=== PATIENT | male | born 1955 | race African-American/Black ===

== ENCOUNTER 2017-02-01 13:58 | Inpatient (IN) | payer OTHER ==
[2017-02-01 14:21] VITALS: BMI 16.2
--- NOTE | 2017-02-01 15:45 | HP ---
CIWA Score - CIWA Score Nausea/Vomitin-No Nausea/No Vomiting Muscle Tremors: 4-Moderate,w/Arms Extend Anxiety: 4-Mod. Anxious/Guarded Agitation: 4-Moderately Restless Paroxysmal Sweats: 1-Minimal Palms Moist Orientation: 0-Oriented Tacttile Disturbances: 3-Moderate Itch/Numb/Burn Auditory Disturbances: 0-None Visual Disturbances: 0-None Headache: 0-None Present CIWA-Ar Total Score: 16 Admission ROS BHS - HPI Chief Complaint: DETOX TX FOR ALCOHOL DEPENDENCE Allergies/Adverse Reactions: Allergies Allergy/AdvReac Type Severity Reaction Status Date / Time No Known Allergies Allergy Verified 02/01/17 15:15 History of Present Illness: 61 Y/O AA/MALE WITH A HX OF ALCOHOL,COCAINE AND MARIJUANA DEPENDENCE SEEKING DETOX TX Exam Limitations: No Limitations - Ebola screening Have you traveled outside of the country in the last 21 days: No Have you had contact with anyone from an Ebola affected area: No Have you been sick,other than usual withdrawal symptoms: No Do you have a fever: No - Review of Systems Constitutional: Chills, Loss of Appetite, Night Sweats, Changes in sleep, Unintentional Wgt. Loss EENT: reports: Blurred Vision, Tearing, Nose Congestion, Dental Problems (IN POOR REPAIR) Respiratory: reports: Shortness of Breath (HX EMPHYSEMA), Wheezing Cardiac: reports: Lightheadedness GI: reports: Constipated, Diarrhea, Nausea, Poor Appetite, Vomiting, Indigestion , Abdominal cramping : reports: No Symptoms Reported Musculoskeletal: reports: Back Pain (LBP), Joint Pain, Muscle Pain Integumentary: reports: No Symptoms Reported Neuro: reports: Headache, Tremors, Unsteady Gait, Dizziness Endocrine: reports: No Symptoms Reported Hematology: reports: Anemia Psychiatric: reports: Orientated x3, Anxious Other Systems: Reviewed and Negative Patient History - Patient Medical History Hx Anemia: No Hx Asthma: No Hx Chronic Obstructive Pulmonary Disease (COPD): Yes (EMPHYSEMA) Hx Cancer: No Hx Cardiac Disorders: No Hx Hypertension: No Hx Hypercholesterolemia: No Hx Pacemaker: No HX Cerebrovascular Accident: No Hx Seizures: No Hx Dementia: No Hx Diabetes: No Hx Gastrointestinal Disorders: Yes (HX DYSPEPSIA) Hx Liver Disease: No Hx Genitourinary Disorders: No Hx Sexually Transmitted Disorders: Yes (SYPHILIS HX) Hx Renal Disease (ESRD): No Hx Thyroid Disease: No Hx Human Immunodeficiency Virus (HIV): No (NEGATIVE HX) Hx Hepatitis C: No Hx Depression: No (DENIES ) Hx Suicide Attempt: No (DENIES) Hx Bipolar Disorder: No Hx Schizophrenia: No Other Medical History: HX OF INSOMNIA WITH NO TREATMENT - Patient Surgical History Past Surgical History: Yes Hx Neurologic Surgery: No Hx Cataract Extraction: No Hx Cardiac Surgery: No Hx Lung Surgery: No Hx Breast Surgery: No Hx Breast Biopsy: No Hx Abdominal Surgery: Yes (stomach ulcer in 11/2013) Hx Appendectomy: No Hx Cholecystectomy: No Hx Genitourinary Surgery: No Hx Orthopedic Surgery: No Anesthesia Reaction: No - PPD History Previous Implant?: Yes Documented Results: Positive w/o proof Implanted On Prior [facility] Admission?: No Results: CXR TBD PPD to be Administered?: No - Reproductive History Patient is a Female of Child Bearing Age (11 -55 yrs old): No (MALE) - Smoking Cessation Smoking history: Current every day smoker Have you smoked in the past 12 months: Yes Aproximately how many cigarettes per day: 20 Hx Chewing Tobacco Use: No Initiated information on smoking cessation: Yes 'Breaking Loose' booklet given: 02/01/17 - Substance & Tx. History Hx Alcohol Use: Yes (CRACK/MARIJUANA) Hx Substance Use: Yes (COCAINE DEPENDENCE) - Substances Abused Alcohol Route: Oral Frequency: Daily Amount used: 6 32 OZ BEERS Age of first use: 17 Date of Last Use: 02/01/17 Crack Route: Smoking Frequency: Daily Amount used: $100-150 Age of first use: 36 Date of Last Use: 02/01/17 Marijuana/Hashish Route: Smoking Frequency: Daily Amount used: 1 BAG Age of first use: 19 Date of Last Use: 01/31/17 Family Disease History - Family Disease History Family Disease History: Diabetes: Father, Heart Disease: Mother (HTN) Admission Physical Exam BHS - Vital Signs Vital Signs: Vital Signs - 24 hr 02/01/17 14:18 Temperature 95.4 F L Pulse Rate 98 H Respiratory 20 Rate Blood Pressure 139/95 - Physical General Appearance: Yes: Moderate Distress, Thin, Anxious HEENTM: Yes: EOMI, Normocephalic, LUISANA, Pharynx Normal, Nasal Congestion Respiratory: Yes: Chest Non-Tender, Lungs Clear, Normal Breath Sounds, No Respiratory Distress Neck: Yes: No masses,lesions,Nodules, Supple, Trachea in good position Breast: Yes: Breast Exam Deferred Cardiology: Yes: Regular Rhythm, Regular Rate, S1, S2 Abdominal: Yes: Normal Bowel Sounds, Non Tender, Flat, Soft Genitourinary: Yes: Other (N/C) Back: Yes: Within Normal Limits Musculoskeletal: Yes: full range of Motion, Gait Steady Extremities: Yes: Normal Range of Motion, Non-Tender Neurological: Yes: paradichlorobenzene tender II-XII NML intact, Fully Oriented, Alert Integumentary: Yes: Dry, Warm Lymphatic: Yes: Within Normal Limits - Diagnostic (1) Weight loss Current Visit: Yes Status: Chronic (2) Emphysema/COPD Current Visit: Yes Status: Chronic (3) Nicotine dependence Current Visit: Yes Status: Acute Qualifiers: Nicotine product type: cigarettes Substance use status: uncomplicated Qualified Code(s): F17.210 - Nicotine dependence, cigarettes, uncomplicated (4) Alcohol dependence with uncomplicated withdrawal Current Visit: Yes Status: Acute (5) Cocaine dependence, uncomplicated Current Visit: Yes Status: Acute (6) Cannabis dependence, uncomplicated Current Visit: Yes Status: Acute Cleared for Admission [facility] - Detox or Rehab [facility] Level of Care: Medically Managed Detox Regimen/Protocol: Librium [facility] Breath Alcohol Content Breath Alcohol Content: 0 Urine Drug Screen - Results Drug Screen Negative: No Urine Drug Screen Results: THC-Marijuana, MORENA-Cocaine
[2017-02-01] MEDS ORDERED: P-EPHED 60MG/TRIPROLIDI 2.5MG TABLET PO PRN (15:54)
[2017-02-01] MEDS ORDERED: hydrOXYzine PAMOATE 25 MG CAPSULE (FP) PO PRN (15:54)
[2017-02-01] MEDS ORDERED: MAG HYDROX/AL HYDROX/SIMETH 30 ML UNIT-DOSE CUP PO PRN (15:54)
[2017-02-01] MEDS ORDERED: IBUPROFEN 400 MG TABLET (FP) PO PRN (15:54)
[2017-02-01] MEDS ORDERED: MAGNESIUM CITRATE 300 ML BOTTLE PO PRN (15:54)
[2017-02-01] MEDS ORDERED: MENTHOL/PHENOL 1 EACH UD MM PRN (15:54)
[2017-02-01] MEDS ORDERED: LOPERAMIDE HCL 2 MG CAPSULE PO PRN (15:54)
[2017-02-01] MEDS ORDERED: NICOTINE POLACRILEX 4 MG GUM BUC PRN (15:54)
[2017-02-01] MEDS ORDERED: guaiFENesin/D-METHORPHAN HB 10 ML UNIT-DOSE CUPS PO PRN (15:54)
[2017-02-01] MEDS ORDERED: chlordiazePOXIDE HCL 25 MG CAPSULE PO PRN (15:54)
[2017-02-01] MEDS ORDERED: ACETAMINOPHEN 325 MG TABLET (FP) PO PRN (15:54)
[2017-02-01] MEDS ORDERED: MAGNESIUM HYDROX 2400MG/30ML ORAL SUSPENSION 30 ML CUP PO PRN (15:54)
[2017-02-01] MEDS ORDERED: chlordiazePOXIDE HCL 25 MG CAPSULE PO ONE (18:15)
[2017-02-01] MEDS: NICOTINE 21 MG/24 HOURS TOPICAL PATCH TD SCH (18:19)
[2017-02-01 20:51] LABS: URINE APPEARANCE CLEAR; URINE BILIRUBIN NEGATIVE (NEGATIVE); URINE COLOR LTYELLOW; URINE GLUCOSE (UA) NEGATIVE (NEGATIVE); URINE KETONE NEGATIVE (NEGATIVE); URINE LEUK ESTERASE NEGATIVE (NEGATIVE); URINE NITRITE NEGATIVE (NEGATIVE); URINE PROTEIN NEGATIVE (NEGATIVE); URINE UROBILINOGEN NEGATIVE E.U./dl (0.2-1.0)
[2017-02-01 21:00] LABS: URINE BLOOD 1+ (NEGATIVE)
[2017-02-01 21:05] LABS: URINE MUCUS RARE; URINE RBC <1 /hpf (0-3); URINE WBC <1 /hpf (3-5)
[2017-02-01] MEDS: chlordiazePOXIDE HCL 25 MG CAPSULE PO SCH (22:12)
[2017-02-01] MEDS: BUDESONIDE/FORMETEROL FUMARATE 80/4.5 mcg INHALER IH SCH (22:12)
[2017-02-01] MEDS: THIAMINE HCL 100 MG TABLET (FP) PO SCH (22:12)
[2017-02-01] MEDS: diphenhydrAMINE HCL 50 MG CAPSULE PO PRN (22:13)
[2017-02-02] MEDS: chlordiazePOXIDE HCL 25 MG CAPSULE PO SCH ×4 (05:50→22:11)
[2017-02-02 10:00] LABS: MCH 28.7 pg (25.7-33.7); MCHC 32.2 g/dl (32.0-35.9); MEAN CELL VOLUME 89.1 fl (80-96); MEAN PLT VOLUME 9.2 fl (7.5-11.1); PLATELET COUNT 131 K/MM3 (134-434); RDW 13.5 % (11.9-15.9); WHITE BLOOD COUNT 3.9 K/mm3 (4.0-10.0)
[2017-02-02] MEDS: PRENATAL VITAMINS W/ FOLIC ACID TABLET (FP) PO SCH (10:18)
[2017-02-02] MEDS: BUDESONIDE/FORMETEROL FUMARATE 80/4.5 mcg INHALER IH SCH ×2 (10:18→22:11)
[2017-02-02] MEDS: NICOTINE 21 MG/24 HOURS TOPICAL PATCH TD SCH (10:19)
--- NOTE | 2017-02-02 10:59 | PN ---
[facility] CIWA - CIWA Score Nausea/Vomitin-No Nausea/No Vomiting Muscle Tremors: 4-Moderate,w/Arms Extend Anxiety: 4-Mod. Anxious/Guarded Agitation: 4-Moderately Restless Paroxysmal Sweats: 1-Minimal Palms Moist Orientation: 0-Oriented Tacttile Disturbances: 3-Moderate Itch/Numb/Burn Auditory Disturbances: 0-None Visual Disturbances: 0-None Headache: 0-None Present CIWA-Ar Total Score: 16 BHS Progress Note (SOAP) Subjective: ANXIETY,TREMORS,SWEATS. Objective: 02/02/17 10:58 Vital Signs Temperature 96.5 F L 02/02/17 09:28 Pulse Rate 78 02/02/17 09:28 Respiratory Rate 19 02/02/17 09:28 Blood Pressure 135/93 02/02/17 09:28 O2 Sat by Pulse Oximetry (%) Laboratory Last Values WBC 3.9 K/mm3 (4.0-10.0) L 02/02/17 07:00 RBC 4.92 M/mm3 (4.00-5.60) 02/02/17 07:00 Hgb 14.1 GM/dL (11.7-16.9) 02/02/17 07:00 Hct 43.8 % (35.4-49) 02/02/17 07:00 MCV 89.1 fl (80-96) 02/02/17 07:00 MCHC 32.2 g/dl (32.0-35.9) 02/02/17 07:00 RDW 13.5 % (11.9-15.9) 02/02/17 07:00 Plt Count 131 K/MM3 (134-434) L D 02/02/17 07:00 MPV 9.2 fl (7.5-11.1) 02/02/17 07:00 Urine Color Ltyellow 02/01/17 19:30 Urine Appearance Clear 02/01/17 19:30 Urine pH 5.0 (5.0-8.0) 02/01/17 19:30 Ur Specific [place] 1.008 (1.001-1.035) 02/01/17 19:30 Urine Protein Negative (NEGATIVE) 02/01/17 19:30 Urine Glucose (UA) Negative (NEGATIVE) 02/01/17 19:30 Urine Ketones Negative (NEGATIVE) 02/01/17 19:30 Urine Blood 1+ (NEGATIVE) H 02/01/17 19:30 Urine Nitrite Negative (NEGATIVE) 02/01/17 19:30 Urine Bilirubin Negative (NEGATIVE) 02/01/17 19:30 Urine Urobilinogen Negative E.U./dl (0.2-1.0) 02/01/17 19:30 Ur Leukocyte Esterase Negative (NEGATIVE) 02/01/17 19:30 Urine RBC <1 /hpf (0-3) 02/01/17 19:30 Urine WBC <1 /hpf (3-5) 02/01/17 19:30 Ur Epithelial Cells Rare /hpf (FEW) 02/01/17 19:30 Urine Mucus Rare 02/01/17 19:30 Assessment: 02/02/17 10:58 WITHDRAWAL SX Plan: CONTINUE DETOX
[2017-02-02 11:16] LABS: ALBUMIN 3.4 g/dl (3.4-5.0); ALK PHOS 66 U/L (45-117); ANION GAP 8 (8-16); BILIRUBIN,TOTAL 0.4 mg/dL (0.2-1.0); CALCIUM 8.9 mg/dL (8.5-10.1); CO2 29 mmol/L (21-32); CREATININE 0.9 mg/dL (0.7-1.3); GLUCOSE,RANDOM 106 mg/dL (74-106); SGOT/AST 17 U/L (15-37); SGPT/ALT 17 U/L (12-78); TOT PROT 6.4 g/dl (6.4-8.2)
--- NOTE | 2017-02-02 17:18 | EKG ---
Test Reason : Blood Pressure : / mmHG Vent. Rate : 085 BPM Atrial Rate : 085 BPM P-R Int : 130 ms QRS Dur : 078 ms QT Int : 410 ms P-R-T Axes : 087 082 063 degrees QTc Int : 487 ms NORMAL SINUS RHYTHM BIATRIAL ENLARGEMENT PULMONARY DISEASE PATTERN PROLONGED QT ABNORMAL ECG NO PREVIOUS ECGS AVAILABLE Confirmed by YESSICA WAHL MD ([id number]) on 02/02/2017 5:18:13 PM Referred By: Confirmed By:YESSICA WAHL MD
[2017-02-02] MEDS: THIAMINE HCL 100 MG TABLET (FP) PO SCH (22:11)
[2017-02-02] MEDS: diphenhydrAMINE HCL 50 MG CAPSULE PO PRN (22:11)
[2017-02-03] MEDS: chlordiazePOXIDE HCL 25 MG CAPSULE PO SCH ×3 (05:51→17:23)
[2017-02-03] MEDS: NICOTINE 21 MG/24 HOURS TOPICAL PATCH TD SCH (10:17)
[2017-02-03] MEDS: PRENATAL VITAMINS W/ FOLIC ACID TABLET (FP) PO SCH (10:17)
[2017-02-03] MEDS: BUDESONIDE/FORMETEROL FUMARATE 80/4.5 mcg INHALER IH SCH ×2 (10:17→22:17)
--- NOTE | 2017-02-03 11:03 | PN ---
S CIWA - CIWA Score Nausea/Vomitin-No Nausea/No Vomiting Muscle Tremors: 3 Anxiety: 3 Agitation: 4-Moderately Restless Paroxysmal Sweats: 3 Orientation: 0-Oriented Tacttile Disturbances: 0-None Auditory Disturbances: 0-None Visual Disturbances: 0-None Headache: 0-None Present CIWA-Ar Total Score: 13 BHS Progress Note (SOAP) Subjective: Anxiety,tremors,sweating,interrupted sleep,restless Objective: 02/03/17 11:02 Vital Signs - 8 hr 02/03/17 02/03/17 02/03/17 03:30 06:39 10:52 Temperature 96.3 F L 97.5 F L Pulse Rate 91 H 85 Respiratory 16 18 18 Rate Blood Pressure 130/91 124/87 Laboratory Tests 02/01/17 02/02/17 02/02/17 19:30 07:00 07:00 WBC 3.9 L RBC 4.92 Hgb 14.1 Hct 43.8 MCV 89.1 MCHC 32.2 RDW 13.5 Plt Count 131 L D MPV 9.2 Sodium 143 Potassium 3.8 Chloride 106 Carbon Dioxide 29 Anion Gap 8 BUN 13 Creatinine 0.9 D Creat Clearance w eGFR > 60 Random Glucose 106 Calcium 8.9 Total Bilirubin 0.4 AST 17 ALT 17 D Alkaline Phosphatase 66 Total Protein 6.4 Albumin 3.4 Urine Color Ltyellow Urine Appearance Clear Urine pH 5.0 Ur Specific [place] 1.008 Urine Protein Negative Urine Glucose (UA) Negative Urine Ketones Negative Urine Blood 1+ H Urine Nitrite Negative Urine Bilirubin Negative Urine Urobilinogen Negative Ur Leukocyte Esterase Negative Urine RBC <1 Urine WBC <1 Ur Epithelial Cells Rare Urine Mucus Rare RPR Titer 02/02/17 07:00 WBC RBC Hgb Hct MCV MCHC RDW Plt Count MPV Sodium Potassium Chloride Carbon Dioxide Anion Gap BUN Creatinine Creat Clearance w eGFR Random Glucose Calcium Total Bilirubin AST ALT Alkaline Phosphatase Total Protein Albumin Urine Color Urine Appearance Urine pH Ur Specific [place] Urine Protein Urine Glucose (UA) Urine Ketones Urine Blood Urine Nitrite Urine Bilirubin Urine Urobilinogen Ur Leukocyte Esterase Urine RBC Urine WBC Ur Epithelial Cells Urine Mucus RPR Titer Nonreactive labs noted Assessment: 02/03/17 11:02 Withdrawal sx. Plan: Continue detox
[2017-02-03] MEDS: ALBUTEROL SO4 6.7 GM HFA INHALER IH PRN (17:26)
[2017-02-03] MEDS: THIAMINE HCL 100 MG TABLET (FP) PO SCH (22:17)
[2017-02-03] MEDS: chlordiazePOXIDE 5 MG CAPSULE PO SCH (22:17)
[2017-02-03] MEDS: diphenhydrAMINE HCL 50 MG CAPSULE PO PRN (22:18)
[2017-02-04] MEDS: chlordiazePOXIDE 5 MG CAPSULE PO SCH ×3 (05:32→17:26)
[2017-02-04] MEDS: NICOTINE 21 MG/24 HOURS TOPICAL PATCH TD SCH (10:17)
[2017-02-04] MEDS: BUDESONIDE/FORMETEROL FUMARATE 80/4.5 mcg INHALER IH SCH ×2 (10:17→22:16)
[2017-02-04] MEDS: PRENATAL VITAMINS W/ FOLIC ACID TABLET (FP) PO SCH (10:17)
--- NOTE | 2017-02-04 12:20 | PN ---
BHS Progress Note (SOAP) Subjective: Sweating,interrupted sleep,restless Objective: 02/04/17 12:15 Vital Signs - 8 hr 02/04/17 02/04/17 06:28 09:37 Temperature 96.6 F L 96.8 F L Pulse Rate 85 80 Respiratory 18 18 Rate Blood Pressure 146/95 124/94 Laboratory Last Values WBC 3.9 K/mm3 (4.0-10.0) L 02/02/17 07:00 RBC 4.92 M/mm3 (4.00-5.60) 02/02/17 07:00 Hgb 14.1 GM/dL (11.7-16.9) 02/02/17 07:00 Hct 43.8 % (35.4-49) 02/02/17 07:00 MCV 89.1 fl (80-96) 02/02/17 07:00 MCHC 32.2 g/dl (32.0-35.9) 02/02/17 07:00 RDW 13.5 % (11.9-15.9) 02/02/17 07:00 Plt Count 131 K/MM3 (134-434) L D 02/02/17 07:00 MPV 9.2 fl (7.5-11.1) 02/02/17 07:00 Sodium 143 mmol/L (136-145) 02/02/17 07:00 Potassium 3.8 mmol/L (3.5-5.1) 02/02/17 07:00 Chloride 106 mmol/L (98-107) 02/02/17 07:00 Carbon Dioxide 29 mmol/L (21-32) 02/02/17 07:00 Anion Gap 8 (8-16) 02/02/17 07:00 BUN 13 mg/dL (7-18) 02/02/17 07:00 Creatinine 0.9 mg/dL (0.7-1.3) D 02/02/17 07:00 Creat Clearance w eGFR > 60 (>60) 02/02/17 07:00 Random Glucose 106 mg/dL (74-106) 02/02/17 07:00 Calcium 8.9 mg/dL (8.5-10.1) 02/02/17 07:00 Total Bilirubin 0.4 mg/dL (0.2-1.0) 02/02/17 07:00 AST 17 U/L (15-37) 02/02/17 07:00 ALT 17 U/L (12-78) D 02/02/17 07:00 Alkaline Phosphatase 66 U/L (45-117) 02/02/17 07:00 Total Protein 6.4 g/dl (6.4-8.2) 02/02/17 07:00 Albumin 3.4 g/dl (3.4-5.0) 02/02/17 07:00 Urine Color Ltyellow 02/01/17 19:30 Urine Appearance Clear 02/01/17 19:30 Urine pH 5.0 (5.0-8.0) 02/01/17 19:30 Ur Specific [place] 1.008 (1.001-1.035) 02/01/17 19:30 Urine Protein Negative (NEGATIVE) 02/01/17 19:30 Urine Glucose (UA) Negative (NEGATIVE) 02/01/17 19:30 Urine Ketones Negative (NEGATIVE) 02/01/17 19:30 Urine Blood 1+ (NEGATIVE) H 02/01/17 19:30 Urine Nitrite Negative (NEGATIVE) 02/01/17 19:30 Urine Bilirubin Negative (NEGATIVE) 02/01/17 19:30 Urine Urobilinogen Negative E.U./dl (0.2-1.0) 02/01/17 19:30 Ur Leukocyte Esterase Negative (NEGATIVE) 02/01/17 19:30 Urine RBC <1 /hpf (0-3) 02/01/17 19:30 Urine WBC <1 /hpf (3-5) 02/01/17 19:30 Ur Epithelial Cells Rare /hpf (FEW) 02/01/17 19:30 Urine Mucus Rare 02/01/17 19:30 RPR Titer Nonreactive (NONREACTIVE) 02/02/17 07:00 labs noted Assessment: 02/04/17 12:15 Withdrawal sx. Plan: Continue detox
[2017-02-04] MEDS: HYDROCORTISONE 1% TOPICAL CREAM 30 GM TUBE TP SCH ×3 (14:28→22:17)
[2017-02-04] MEDS: ALBUTEROL SO4 6.7 GM HFA INHALER IH PRN (17:27)
[2017-02-04] MEDS: THIAMINE HCL 100 MG TABLET (FP) PO SCH (22:16)
[2017-02-04] MEDS: chlordiazePOXIDE HCL 10 MG CAPSULE PO SCH (22:17)
[2017-02-04] MEDS: diphenhydrAMINE HCL 50 MG CAPSULE PO PRN (22:17)
[2017-02-05] MEDS: chlordiazePOXIDE HCL 10 MG CAPSULE PO SCH ×2 (05:37→10:24)
[2017-02-05 09:39] VITALS: BP 147/102; PULSE 86; TEMP 96.6
--- NOTE | 2017-02-05 10:01 | DS ---
[facility] Detox Discharge Summary Admission Date: 02/01/17 Discharge Date: 02/05/17 - History Present History: Alcohol Dependence, Cannabis Dependence, Cocaine Dependence Pertinent Past History: COPD PUD - Physical Exam Results Vital Signs: Vital Signs Temperature 96.6 F L 02/05/17 09:39 Pulse Rate 86 02/05/17 09:39 Respiratory Rate 18 02/05/17 09:39 Blood Pressure 147/102 02/05/17 09:39 O2 Sat by Pulse Oximetry (%) Pertinent Admission Physical Exam Findings: Withdrawal sx. Vital Signs - 8 hr 02/05/17 02/05/17 06:29 09:39 Temperature 96.7 F L 96.6 F L Pulse Rate 81 86 Respiratory 18 18 Rate Blood Pressure 130/95 147/102 Laboratory Last Values WBC 3.9 K/mm3 (4.0-10.0) L 02/02/17 07:00 RBC 4.92 M/mm3 (4.00-5.60) 02/02/17 07:00 Hgb 14.1 GM/dL (11.7-16.9) 02/02/17 07:00 Hct 43.8 % (35.4-49) 02/02/17 07:00 MCV 89.1 fl (80-96) 02/02/17 07:00 MCHC 32.2 g/dl (32.0-35.9) 02/02/17 07:00 RDW 13.5 % (11.9-15.9) 02/02/17 07:00 Plt Count 131 K/MM3 (134-434) L D 02/02/17 07:00 MPV 9.2 fl (7.5-11.1) 02/02/17 07:00 Sodium 143 mmol/L (136-145) 02/02/17 07:00 Potassium 3.8 mmol/L (3.5-5.1) 02/02/17 07:00 Chloride 106 mmol/L (98-107) 02/02/17 07:00 Carbon Dioxide 29 mmol/L (21-32) 02/02/17 07:00 Anion Gap 8 (8-16) 02/02/17 07:00 BUN 13 mg/dL (7-18) 02/02/17 07:00 Creatinine 0.9 mg/dL (0.7-1.3) D 02/02/17 07:00 Creat Clearance w eGFR > 60 (>60) 02/02/17 07:00 Random Glucose 106 mg/dL (74-106) 02/02/17 07:00 Calcium 8.9 mg/dL (8.5-10.1) 02/02/17 07:00 Total Bilirubin 0.4 mg/dL (0.2-1.0) 02/02/17 07:00 AST 17 U/L (15-37) 02/02/17 07:00 ALT 17 U/L (12-78) D 02/02/17 07:00 Alkaline Phosphatase 66 U/L (45-117) 02/02/17 07:00 Total Protein 6.4 g/dl (6.4-8.2) 02/02/17 07:00 Albumin 3.4 g/dl (3.4-5.0) 02/02/17 07:00 Urine Color Ltyellow 02/01/17 19:30 Urine Appearance Clear 02/01/17 19:30 Urine pH 5.0 (5.0-8.0) 02/01/17 19:30 Ur Specific [place] 1.008 (1.001-1.035) 02/01/17 19:30 Urine Protein Negative (NEGATIVE) 02/01/17 19:30 Urine Glucose (UA) Negative (NEGATIVE) 02/01/17 19:30 Urine Ketones Negative (NEGATIVE) 02/01/17 19:30 Urine Blood 1+ (NEGATIVE) H 02/01/17 19:30 Urine Nitrite Negative (NEGATIVE) 02/01/17 19:30 Urine Bilirubin Negative (NEGATIVE) 02/01/17 19:30 Urine Urobilinogen Negative E.U./dl (0.2-1.0) 02/01/17 19:30 Ur Leukocyte Esterase Negative (NEGATIVE) 02/01/17 19:30 Urine RBC <1 /hpf (0-3) 02/01/17 19:30 Urine WBC <1 /hpf (3-5) 02/01/17 19:30 Ur Epithelial Cells Rare /hpf (FEW) 02/01/17 19:30 Urine Mucus Rare 02/01/17 19:30 RPR Titer Nonreactive (NONREACTIVE) 02/02/17 07:00 labs noted - Treatment Hospital Course: Detox Protocol Followed, Detoxed Safely, Responded well, Discharged Condition Good, Rehab Referral Accepted Patient has Accepted a Rehab Referral to: [facility] - Medication Discharge Medications: Ambulatory Orders Albuterol Sulfate Inhaler - [Ventolin Hfa Inhaler -] 2 inh PO Q4H 02/01/17 - Diagnosis (1) Alcohol dependence with uncomplicated withdrawal Current Visit: Yes Status: Acute (2) Cannabis dependence, uncomplicated Current Visit: Yes Status: Acute (3) Cocaine dependence, uncomplicated Current Visit: Yes Status: Acute (4) Nicotine dependence Current Visit: Yes Status: Acute Qualifiers: Nicotine product type: cigarettes Substance use status: uncomplicated Qualified Code(s): F17.210 - Nicotine dependence, cigarettes, uncomplicated (5) Emphysema/COPD Current Visit: Yes Status: Chronic (6) Weight loss Current Visit: Yes Status: Chronic (7) Dry skin Current Visit: No Status: Chronic - AMA Did Patient Leave Against Medical Advice: No
[2017-02-05] MEDS: PRENATAL VITAMINS W/ FOLIC ACID TABLET (FP) PO SCH (10:22)
[2017-02-05] MEDS: BUDESONIDE/FORMETEROL FUMARATE 80/4.5 mcg INHALER IH SCH (10:22)
[2017-02-05] MEDS: NICOTINE 21 MG/24 HOURS TOPICAL PATCH TD SCH (10:22)
[2017-02-05] MEDS: HYDROCORTISONE 1% TOPICAL CREAM 30 GM TUBE TP SCH (10:22)
== END 2017-02-05 11:11 | disposition other institution (70) | DRG 774 ==
LOC: YASAS 13:58 → Y3N 16:17
PROVIDERS: ADMIT Internal Medicine Addiction Medicine; ATTEND Internal Medicine Addiction Medicine
PROC: HZ2ZZZZ Detoxification Services for Substance Abuse Treatment (ICD-10-PCS; principal; 2017-02-05)
DX: F10.230 Alcohol dependence with withdrawal, uncomplicated (principal); F14.20 Cocaine dependence, uncomplicated; F12.20 Cannabis dependence, uncomplicated; F17.210 Nicotine dependence, cigarettes, uncomplicated; J44.9 Chronic obstructive pulmonary disease, unspecified; J43.8 Other emphysema; L85.3 Xerosis cutis; R63.4 Abnormal weight loss; Z68.1 Body mass index [BMI] 19.9 or less, adult
CPT/HCPCS: 36415; 71010-TC; 71020-TC; 80053; 81003; 81015; 85027; 86593; 93005; 93010

== ENCOUNTER 2017-02-05 11:17 | Inpatient (IN) | payer OTHER ==
[2017-02-05 11:51] VITALS: BP 125/89; PULSE 86; TEMP 97.5; BMI 16.2
[2017-02-05] MEDS ORDERED: MAG HYDROX/AL HYDROX/SIMETH 30 ML UNIT-DOSE CUP PO PRN (13:11)
[2017-02-05] MEDS ORDERED: NICOTINE POLACRILEX 4 MG GUM BUC PRN (13:11)
[2017-02-05] MEDS ORDERED: guaiFENesin/D-METHORPHAN HB 10 ML UNIT-DOSE CUPS PO PRN (13:11)
[2017-02-05] MEDS ORDERED: MAGNESIUM CITRATE 300 ML BOTTLE PO PRN (13:11)
[2017-02-05] MEDS ORDERED: IBUPROFEN 400 MG TABLET (FP) PO PRN (13:11)
[2017-02-05] MEDS ORDERED: ACETAMINOPHEN 325 MG TABLET (FP) PO PRN (13:11)
[2017-02-05] MEDS ORDERED: P-EPHED 60MG/TRIPROLIDI 2.5MG TABLET PO PRN (13:11)
[2017-02-05] MEDS ORDERED: LOPERAMIDE HCL 2 MG CAPSULE PO PRN (13:11)
[2017-02-05] MEDS ORDERED: MAGNESIUM HYDROX 2400MG/30ML ORAL SUSPENSION 30 ML CUP PO PRN (13:11)
[2017-02-05] MEDS ORDERED: MENTHOL/PHENOL 1 EACH UD MM PRN (13:11)
[2017-02-05] MEDS ORDERED: diphenhydrAMINE HCL 50 MG CAPSULE PO PRN (13:11)
--- NOTE | 2017-02-05 13:14 | HP ---
[facility] Re[facility] Assess/Revision - Admission History Admitted to Rehab [facility] Date of Admission to Rehab: 02/05/17 - Vital signs Vital Signs: Vital Signs Period Temp Pulse Resp BP Sys/Connell Pulse Ox Last 24 Hr 97.5 F 86 18 125/89 - Findings Detox History & Physical reviewed: Yes Concur with findings: Yes
[2017-02-05] MEDS ORDERED: ALBUTEROL SO4 6.7 GM HFA INHALER IH SCH (13:15)
[2017-02-05] MEDS ORDERED: PT OWN MED DRAWER 7, Y5N ONE (16:32)
[2017-02-05] MEDS ORDERED: THIAMINE HCL 100 MG TABLET (FP) PO SCH (22:00)
[2017-02-05] MEDS ORDERED: BUDESONIDE/FORMETEROL FUMARATE 80/4.5 mcg INHALER IH SCH (22:00)
[2017-02-06] MEDS ORDERED: NICOTINE 21 MG/24 HOURS TOPICAL PATCH TD SCH (10:00)
[2017-02-06] MEDS ORDERED: PRENATAL VITAMINS W/ FOLIC ACID TABLET (FP) PO SCH (10:00)
== END 2017-02-05 16:37 | disposition left against medical advice (07) | DRG 770 ==
LOC: YASAS 11:17 → Y3W 11:18
PROVIDERS: ADMIT Psychiatry & Neurology Psychiatry; ATTEND Psychiatry & Neurology Psychiatry
PROC: HZ42ZZZ Group Counseling for Substance Abuse Treatment, Cognitive-Behavioral (ICD-10-PCS; principal; 2017-02-05)
DX: F10.20 Alcohol dependence, uncomplicated (principal); F14.20 Cocaine dependence, uncomplicated; F12.20 Cannabis dependence, uncomplicated; F17.210 Nicotine dependence, cigarettes, uncomplicated; F44.9 Dissociative and conversion disorder, unspecified; J43.8 Other emphysema; L85.3 Xerosis cutis; R63.4 Abnormal weight loss; Z68.1 Body mass index [BMI] 19.9 or less, adult

== ENCOUNTER 2017-03-28 16:14 | Inpatient (IN) | payer OTHER ==
[2017-03-28 16:44] VITALS: BMI 16.9
--- NOTE | 2017-03-28 16:51 | HP ---
CIWA Score - CIWA Score Nausea/Vomitin Muscle Tremors: 3 Anxiety: 3 Agitation: 3 Paroxysmal Sweats: 2 Orientation: 0-Oriented Tacttile Disturbances: 2-Mild Itch/Numbness/Burn Auditory Disturbances: 2-Mild Harshness/Frighten Visual Disturbances: 2-Mild Sensitivity Headache: 2-Mild CIWA-Ar Total Score: 22 Admission ROS BHS - HPI Chief Complaint: I AM HERE [facility] HELP TO STOP DRINKING ALCOHOL AND CRACK Allergies/Adverse Reactions: Allergies Allergy/AdvReac Type Severity Reaction Status Date / Time No Known Allergies Allergy Verified 03/28/17 16:38 History of Present Illness: THIS 61 YEARS BLACK MALE WITH ALCOHOL AND CRACK DEPENDENCE,SEEKING HELP FOR DETOX,LAST DETOX 02/01/17 TO 02/05/17 YOON LOSS SEVERAL ADMISSIONS IN THE PAST BUT RELAPSED LONGEST PERIOD OF SOBRIETY 8 YEARS Exam Limitations: No Limitations - Ebola screening Have you traveled outside of the country in the last 21 days: No (N) Have you had contact with anyone from an Ebola affected area: No Have you been sick,other than usual withdrawal symptoms: No Do you have a fever: No - Review of Systems Constitutional: Loss of Appetite, Malaise, Night Sweats, Changes in sleep, Weakness, Unintentional Wgt. Loss EENT: reports: Nose Congestion Respiratory: reports: No Symptoms reported, Other (COPD) Cardiac: reports: Palpitations GI: reports: Nausea, Poor Appetite, Vomiting, Abdominal cramping : reports: No Symptoms Reported Musculoskeletal: reports: Back Pain, Muscle Pain Integumentary: reports: Dryness Neuro: reports: Headache, Tremors Endocrine: reports: No Symptoms Reported Hematology: reports: No Symptoms Reported Psychiatric: reports: Judgement Intact, Mood/Affect Appropiate, Orientated x3 Patient History - Patient Medical History Hx Anemia: No Hx Asthma: No Hx Chronic Obstructive Pulmonary Disease (COPD): Yes Hx Cancer: No Hx Cardiac Disorders: No Hx Hypertension: No Hx Hypercholesterolemia: No Hx Pacemaker: No HX Cerebrovascular Accident: No Hx Seizures: Yes (long time ago) Hx Dementia: No Hx Diabetes: No Hx Gastrointestinal Disorders: Yes (HX DYSPEPSIA, hx of stomach ulcer) Hx Liver Disease: No Hx Genitourinary Disorders: No Hx Sexually Transmitted Disorders: Yes (SYPHILIS HX) Hx Renal Disease (ESRD): No Hx Thyroid Disease: No Hx Human Immunodeficiency Virus (HIV): No (NEGATIVE HX LAST 2013) Hx Hepatitis C: No Hx Depression: No (DENIES ) Hx Suicide Attempt: No (DENIES) Hx Bipolar Disorder: No Hx Schizophrenia: No Other Medical History: NO SUICIDAL,NO HOMICIDAL - Patient Surgical History Past Surgical History: Yes Hx Neurologic Surgery: No Hx Cataract Extraction: No Hx Cardiac Surgery: No Hx Lung Surgery: No Hx Breast Surgery: No Hx Breast Biopsy: No Hx Abdominal Surgery: Yes (stomach ulcer in 11/2013 INTERFATHE) Hx Appendectomy: No Hx Cholecystectomy: No Hx Genitourinary Surgery: No Hx Section: No Hx Orthopedic Surgery: No Anesthesia Reaction: No - PPD History Previous Implant?: Yes Results: seen CXR result - Smoking Cessation Smoking history: Current every day smoker Have you smoked in the past 12 months: Yes Aproximately how many cigarettes per day: 20 Cigars Per Day: 0 Hx Chewing Tobacco Use: No Initiated information on smoking cessation: Yes 'Breaking Loose' booklet given: 03/28/17 - Substance & Tx. History Hx Alcohol Use: Yes Hx Substance Use: Yes Substance Use Type: Alcohol, Cocaine Hx Substance Use Treatment: Yes (02/05/17) - Substances Abused Alcohol Route: Oral Frequency: Daily Amount used: liquor- 2 pints, beer- 2 six pack Age of first use: 17 Date of Last Use: 03/28/17 Crack Route: Smoking Frequency: Daily Amount used: $150 Age of first use: 22 Date of Last Use: 03/27/17 Family Disease History - Family Disease History Family Disease History: Diabetes: Father (,ALCOHOL), Heart Disease: Mother (HTN) Admission Physical Exam S - Vital Signs Vital Signs: Vital Signs - 24 hr 03/28/17 16:40 Temperature 97.2 F L Pulse Rate 115 H Respiratory 18 Rate Blood Pressure 124/76 - Physical General Appearance: Yes: Moderate Distress, Tremorous, Irritable, Sweating, Anxious HEENTM: Yes: Normal ENT Inspection, LUISANA, Pharynx Normal Respiratory: Yes: Lungs Clear, Normal Breath Sounds, No Respiratory Distress Neck: Yes: Within Normal Limits, Supple, Trachea in good position Breast: Yes: Within Normal Limits Cardiology: Yes: Within Normal Limits, Regular Rhythm, Regular Rate, S1, S2 Abdominal: Yes: Normal Bowel Sounds, Non Tender, Flat, Soft, Surgical Scar Genitourinary: Yes: Within Normal Limits Back: Yes: Normal Inspection, Muscle Spasm Musculoskeletal: Yes: full range of Motion, Back pain, Muscle Pain Extremities: Yes: Tremors Neurological: Yes: market research senior project manager II-XII NML intact, Fully Oriented, Alert, Motor Strength 5/5 Integumentary: Yes: Within Normal Limits, Dry Lymphatic: Yes: Within Normal Limits - Diagnostic (1) Alcohol dependence with uncomplicated withdrawal Current Visit: No Status: Acute (2) Cannabis dependence, uncomplicated Current Visit: No Status: Acute (3) Cocaine dependence, uncomplicated Current Visit: No Status: Acute (4) Nicotine dependence Current Visit: No Status: Acute Qualifiers: Nicotine product type: cigarettes Substance use status: uncomplicated Qualified Code(s): F17.210 - Nicotine dependence, cigarettes, uncomplicated (5) Emphysema/COPD Current Visit: No Status: Chronic (6) Weight loss Current Visit: No Status: Chronic (7) History of stomach ulcers Current Visit: Yes Status: Acute Cleared for Admission [facility] - Detox or Rehab [facility] Level of Care: Medically Managed Detox Regimen/Protocol: Librium [facility] Breath Alcohol Content Breath Alcohol Content: 0 Urine Drug Screen - Results Drug Screen Negative: No Urine Drug Screen Results: THC-Marijuana, MORENA-Cocaine, BZO-Benzodiazepines
[2017-03-28] MEDS ORDERED: ACETAMINOPHEN 325 MG TABLET (FP) PO PRN (17:04)
[2017-03-28] MEDS ORDERED: LOPERAMIDE HCL 2 MG CAPSULE PO PRN (17:04)
[2017-03-28] MEDS ORDERED: IBUPROFEN 400 MG TABLET (FP) PO PRN (17:04)
[2017-03-28] MEDS ORDERED: MAG HYDROX/AL HYDROX/SIMETH 30 ML UNIT-DOSE CUP PO PRN (17:04)
[2017-03-28] MEDS ORDERED: hydrOXYzine PAMOATE 25 MG CAPSULE (FP) PO PRN (17:04)
[2017-03-28] MEDS ORDERED: guaiFENesin/D-METHORPHAN HB 10 ML UNIT-DOSE CUPS PO PRN (17:04)
[2017-03-28] MEDS ORDERED: MAGNESIUM CITRATE 300 ML BOTTLE PO PRN (17:04)
[2017-03-28] MEDS ORDERED: MENTHOL/PHENOL 1 EACH UD MM PRN (17:04)
[2017-03-28] MEDS ORDERED: P-EPHED 60MG/TRIPROLIDI 2.5MG TABLET PO PRN (17:04)
[2017-03-28] MEDS ORDERED: MAGNESIUM HYDROX 2400MG/30ML ORAL SUSPENSION 30 ML CUP PO PRN (17:04)
[2017-03-28] MEDS ORDERED: chlordiazePOXIDE HCL 25 MG CAPSULE PO PRN (17:04)
[2017-03-28] MEDS ORDERED: chlordiazePOXIDE HCL 25 MG CAPSULE PO ONE (17:45)
[2017-03-28] MEDS: NICOTINE 21 MG/24 HOURS TOPICAL PATCH TD SCH (18:17)
[2017-03-28] MEDS: chlordiazePOXIDE HCL 25 MG CAPSULE PO SCH (22:03)
[2017-03-28] MEDS: THIAMINE HCL 100 MG TABLET (FP) PO SCH (22:03)
[2017-03-28] MEDS: diphenhydrAMINE HCL 50 MG CAPSULE PO PRN (22:04)
[2017-03-28] MEDS: BUDESONIDE/FORMETEROL FUMARATE 80/4.5 mcg INHALER IH SCH (22:04)
[2017-03-28 23:38] LABS: URINE APPEARANCE CLEAR; URINE BILIRUBIN NEGATIVE (NEGATIVE); URINE BLOOD NEGATIVE (NEGATIVE); URINE COLOR YELLOW; URINE GLUCOSE (UA) NEGATIVE (NEGATIVE); URINE KETONE NEGATIVE (NEGATIVE); URINE LEUK ESTERASE NEGATIVE (NEGATIVE); URINE NITRITE NEGATIVE (NEGATIVE); URINE PROTEIN NEGATIVE (NEGATIVE); URINE UROBILINOGEN NEGATIVE E.U./dl (0.2-1.0)
[2017-03-29] MEDS: chlordiazePOXIDE HCL 25 MG CAPSULE PO SCH ×4 (05:34→22:01)
[2017-03-29] MEDS: NICOTINE 21 MG/24 HOURS TOPICAL PATCH TD SCH (10:06)
[2017-03-29] MEDS: PRENATAL VITAMINS W/ FOLIC ACID TABLET (FP) PO SCH (10:06)
[2017-03-29] MEDS: BUDESONIDE/FORMETEROL FUMARATE 80/4.5 mcg INHALER IH SCH ×2 (10:07→22:01)
[2017-03-29 10:11] LABS: MCH 29.4 pg (25.7-33.7); MCHC 32.7 g/dl (32.0-35.9); MEAN PLT VOLUME 8.9 fl (7.5-11.1); PLATELET COUNT 149 K/MM3 (134-434); RDW 14.4 % (11.9-15.9); WHITE BLOOD COUNT 4.7 K/mm3 (4.0-10.0)
[2017-03-29 10:39] LABS: ALBUMIN 3.3 g/dl (3.4-5.0); GLUCOSE,RANDOM 102 mg/dL (74-106)
[2017-03-29 10:43] LABS: ALK PHOS 62 U/L (45-117); ANION GAP 7 (8-16); BILIRUBIN,TOTAL 0.4 mg/dL (0.2-1.0); CALCIUM 8.9 mg/dL (8.5-10.1); CO2 30 mmol/L (21-32); COCKROFT - GAULT 61.23; CREATININE 0.9 mg/dL (0.7-1.3); SGOT/AST 20 U/L (15-37); SGPT/ALT 23 U/L (12-78); TOT PROT 6.5 g/dl (6.4-8.2)
--- NOTE | 2017-03-29 13:00 | PN ---
[facility] CIWA - CIWA Score Nausea/Vomitin Muscle Tremors: 3 Anxiety: 2 Agitation: 2 Paroxysmal Sweats: 3 Orientation: 0-Oriented Tacttile Disturbances: 2-Mild Itch/Numbness/Burn Auditory Disturbances: 2-Mild Harshness/Frighten Visual Disturbances: 1-Very Mild Sensitivity Headache: 0-None Present CIWA-Ar Total Score: 17 S Progress Note (SOAP) Subjective: Interrupted Sleep, Back Ache, Sweating, Tremors. Objective: PT. A & O X 3. 03/29/17 12:58 Vital Signs Temperature 97.7 F 03/29/17 10:19 Pulse Rate 85 03/29/17 10:19 Respiratory Rate 18 03/29/17 10:19 Blood Pressure 113/86 03/29/17 10:19 O2 Sat by Pulse Oximetry (%) Laboratory Last Values WBC 4.7 K/mm3 (4.0-10.0) 03/29/17 07:00 RBC 4.55 M/mm3 (4.00-5.60) 03/29/17 07:00 Hgb 13.4 GM/dL (11.7-16.9) 03/29/17 07:00 Hct 41.0 % (35.4-49) 03/29/17 07:00 MCV 90.0 fl (80-96) 03/29/17 07:00 MCHC 32.7 g/dl (32.0-35.9) 03/29/17 07:00 RDW 14.4 % (11.9-15.9) 03/29/17 07:00 Plt Count 149 K/MM3 (134-434) 03/29/17 07:00 MPV 8.9 fl (7.5-11.1) 03/29/17 07:00 Sodium 143 mmol/L (136-145) 03/29/17 07:00 Potassium 4.2 mmol/L (3.5-5.1) 03/29/17 07:00 Chloride 106 mmol/L (98-107) 03/29/17 07:00 Carbon Dioxide 30 mmol/L (21-32) 03/29/17 07:00 Anion Gap 7 (8-16) L 03/29/17 07:00 BUN 13 mg/dL (7-18) 03/29/17 07:00 Creatinine 0.9 mg/dL (0.7-1.3) 03/29/17 07:00 Creat Clearance w eGFR > 60 (>60) 03/29/17 07:00 Random Glucose 102 mg/dL (74-106) 03/29/17 07:00 Calcium 8.9 mg/dL (8.5-10.1) 03/29/17 07:00 Total Bilirubin 0.4 mg/dL (0.2-1.0) 03/29/17 07:00 AST 20 U/L (15-37) 03/29/17 07:00 ALT 23 U/L (12-78) D 03/29/17 07:00 Alkaline Phosphatase 62 U/L (45-117) 03/29/17 07:00 Total Protein 6.5 g/dl (6.4-8.2) 03/29/17 07:00 Albumin 3.3 g/dl (3.4-5.0) L 03/29/17 07:00 Urine Color Yellow 03/28/17 18:50 Urine Appearance Clear 03/28/17 18:50 Urine pH 5.0 (5.0-8.0) 03/28/17 18:50 Ur Specific [place] 1.025 (1.005-1.025) 03/28/17 18:50 Urine Protein Negative (NEGATIVE) 03/28/17 18:50 Urine Glucose (UA) Negative (NEGATIVE) 03/28/17 18:50 Urine Ketones Negative (NEGATIVE) 03/28/17 18:50 Urine Blood Negative (NEGATIVE) 03/28/17 18:50 Urine Nitrite Negative (NEGATIVE) 03/28/17 18:50 Urine Bilirubin Negative (NEGATIVE) 03/28/17 18:50 Urine Urobilinogen Negative E.U./dl (0.2-1.0) 03/28/17 18:50 Ur Leukocyte Esterase Negative (NEGATIVE) 03/28/17 18:50 RPR Titer Nonreactive (NONREACTIVE) 03/29/17 07:00 LABS NOTED. Assessment: 03/29/17 12:59 WITHDRAWAL SYMPTOMS. Plan: CONTINUE DETOX. ADVISED PATIENT TO FOLLOW-UP WITH [employer] SALES BEAUTY ADVISOR AFTER DISCHARGE FROM DETOX FOR GENERAL MEDICAL ASSESSMENT AND FOR ABNORMAL ADMISSION LAB VALUES.
[2017-03-29] MEDS: THIAMINE HCL 100 MG TABLET (FP) PO SCH (22:01)
[2017-03-29] MEDS: diphenhydrAMINE HCL 50 MG CAPSULE PO PRN (22:02)
[2017-03-30] MEDS: chlordiazePOXIDE HCL 25 MG CAPSULE PO SCH ×3 (05:22→17:27)
[2017-03-30] MEDS: PRENATAL VITAMINS W/ FOLIC ACID TABLET (FP) PO SCH (10:14)
[2017-03-30] MEDS: BUDESONIDE/FORMETEROL FUMARATE 80/4.5 mcg INHALER IH SCH ×2 (10:14→22:11)
[2017-03-30] MEDS: NICOTINE 21 MG/24 HOURS TOPICAL PATCH TD SCH (10:14)
--- NOTE | 2017-03-30 11:38 | EKG ---
Test Reason : Blood Pressure : / mmHG Vent. Rate : 101 BPM Atrial Rate : 101 BPM P-R Int : 126 ms QRS Dur : 084 ms QT Int : 366 ms P-R-T Axes : 084 074 067 degrees QTc Int : 474 ms SINUS TACHYCARDIA RIGHT ATRIAL ENLARGEMENT BORDERLINE ECG WHEN COMPARED WITH ECG OF 01-FEB-2017 16:57, NO SIGNIFICANT CHANGE WAS FOUND Confirmed by YESSICA WAHL MD ([id number]) on 03/30/2017 11:38:11 AM Referred By: Confirmed By:YESSICA WAHL MD
[2017-03-30] MEDS ORDERED: HYDROCORTISONE 0.5% TOPICAL OINTMENT TUBE TP PRN (11:45)
--- NOTE | 2017-03-30 11:53 | PN ---
[facility] CIWA - CIWA Score Nausea/Vomitin-Mild Nausea/No Vomiting Muscle Tremors: 4-Moderate,w/Arms Extend Anxiety: 2 Agitation: 2 Paroxysmal Sweats: 3 Orientation: 0-Oriented Tacttile Disturbances: 3-Moderate Itch/Numb/Burn Auditory Disturbances: 2-Mild Harshness/Frighten Visual Disturbances: 0-None Headache: 0-None Present CIWA-Ar Total Score: 17 [facility] Progress Note (SOAP) Subjective: Fatigue, Constipation, Tremors, Interrupted Sleep, Sweating. Objective: PT. A & O X 3, OBSERVED AMBULATING ON UNIT. 03/30/17 11:51 Vital Signs Temperature 96.2 F L 03/30/17 09:34 Pulse Rate 88 03/30/17 09:34 Respiratory Rate 18 03/30/17 09:34 Blood Pressure 120/86 03/30/17 09:34 O2 Sat by Pulse Oximetry (%) Laboratory Last Values WBC 4.7 K/mm3 (4.0-10.0) 03/29/17 07:00 RBC 4.55 M/mm3 (4.00-5.60) 03/29/17 07:00 Hgb 13.4 GM/dL (11.7-16.9) 03/29/17 07:00 Hct 41.0 % (35.4-49) 03/29/17 07:00 MCV 90.0 fl (80-96) 03/29/17 07:00 MCHC 32.7 g/dl (32.0-35.9) 03/29/17 07:00 RDW 14.4 % (11.9-15.9) 03/29/17 07:00 Plt Count 149 K/MM3 (134-434) 03/29/17 07:00 MPV 8.9 fl (7.5-11.1) 03/29/17 07:00 Sodium 143 mmol/L (136-145) 03/29/17 07:00 Potassium 4.2 mmol/L (3.5-5.1) 03/29/17 07:00 Chloride 106 mmol/L (98-107) 03/29/17 07:00 Carbon Dioxide 30 mmol/L (21-32) 03/29/17 07:00 Anion Gap 7 (8-16) L 03/29/17 07:00 BUN 13 mg/dL (7-18) 03/29/17 07:00 Creatinine 0.9 mg/dL (0.7-1.3) 03/29/17 07:00 Creat Clearance w eGFR > 60 (>60) 03/29/17 07:00 Random Glucose 102 mg/dL (74-106) 03/29/17 07:00 Calcium 8.9 mg/dL (8.5-10.1) 03/29/17 07:00 Total Bilirubin 0.4 mg/dL (0.2-1.0) 03/29/17 07:00 AST 20 U/L (15-37) 03/29/17 07:00 ALT 23 U/L (12-78) D 03/29/17 07:00 Alkaline Phosphatase 62 U/L (45-117) 03/29/17 07:00 Total Protein 6.5 g/dl (6.4-8.2) 03/29/17 07:00 Albumin 3.3 g/dl (3.4-5.0) L 03/29/17 07:00 Urine Color Yellow 03/28/17 18:50 Urine Appearance Clear 03/28/17 18:50 Urine pH 5.0 (5.0-8.0) 03/28/17 18:50 Ur Specific [place] 1.025 (1.005-1.025) 03/28/17 18:50 Urine Protein Negative (NEGATIVE) 03/28/17 18:50 Urine Glucose (UA) Negative (NEGATIVE) 03/28/17 18:50 Urine Ketones Negative (NEGATIVE) 03/28/17 18:50 Urine Blood Negative (NEGATIVE) 03/28/17 18:50 Urine Nitrite Negative (NEGATIVE) 03/28/17 18:50 Urine Bilirubin Negative (NEGATIVE) 03/28/17 18:50 Urine Urobilinogen Negative E.U./dl (0.2-1.0) 03/28/17 18:50 Ur Leukocyte Esterase Negative (NEGATIVE) 03/28/17 18:50 RPR Titer Nonreactive (NONREACTIVE) 03/29/17 07:00 LABS NOTED. Assessment: 03/30/17 11:52 WITHDRAWAL SYMPTOMS. Plan: CONTINUE DETOX. ADVISED PATIENT TO FOLLOW-UP WITH SALES FLOOR MANAGER AFTER DISCHARGE FROM DETOX FOR GENERAL MEDICAL ASSESSMENT AND FOR ABNORMAL DETOX ADMISSION LAB VALUES.
[2017-03-30] MEDS: ALBUTEROL SO4 6.7 GM HFA INHALER IH PRN (17:29)
[2017-03-30] MEDS: THIAMINE HCL 100 MG TABLET (FP) PO SCH (22:11)
[2017-03-30] MEDS: chlordiazePOXIDE 5 MG CAPSULE PO SCH (22:11)
[2017-03-30] MEDS: diphenhydrAMINE HCL 50 MG CAPSULE PO PRN (22:13)
[2017-03-31] MEDS: chlordiazePOXIDE 5 MG CAPSULE PO SCH ×3 (05:33→17:19)
[2017-03-31] MEDS: ALBUTEROL SO4 6.7 GM HFA INHALER IH PRN (05:35)
[2017-03-31] MEDS: BUDESONIDE/FORMETEROL FUMARATE 80/4.5 mcg INHALER IH SCH ×2 (10:06→22:07)
[2017-03-31] MEDS: NICOTINE 21 MG/24 HOURS TOPICAL PATCH TD SCH (10:06)
[2017-03-31] MEDS: PRENATAL VITAMINS W/ FOLIC ACID TABLET (FP) PO SCH (10:06)
--- NOTE | 2017-03-31 12:50 | PN ---
S Progress Note (SOAP) Subjective: Back Ache, Tremors, Sweating, Interrupted Sleep. Objective: PT. A & OX 3, OBSERVED AMBULATING ON UNIT. 03/31/17 12:49 Vital Signs Temperature 97.8 F 03/31/17 09:55 Pulse Rate 88 03/31/17 09:55 Respiratory Rate 18 03/31/17 09:55 Blood Pressure 125/91 03/31/17 09:55 O2 Sat by Pulse Oximetry (%) Laboratory Last Values WBC 4.7 K/mm3 (4.0-10.0) 03/29/17 07:00 RBC 4.55 M/mm3 (4.00-5.60) 03/29/17 07:00 Hgb 13.4 GM/dL (11.7-16.9) 03/29/17 07:00 Hct 41.0 % (35.4-49) 03/29/17 07:00 MCV 90.0 fl (80-96) 03/29/17 07:00 MCHC 32.7 g/dl (32.0-35.9) 03/29/17 07:00 RDW 14.4 % (11.9-15.9) 03/29/17 07:00 Plt Count 149 K/MM3 (134-434) 03/29/17 07:00 MPV 8.9 fl (7.5-11.1) 03/29/17 07:00 Sodium 143 mmol/L (136-145) 03/29/17 07:00 Potassium 4.2 mmol/L (3.5-5.1) 03/29/17 07:00 Chloride 106 mmol/L (98-107) 03/29/17 07:00 Carbon Dioxide 30 mmol/L (21-32) 03/29/17 07:00 Anion Gap 7 (8-16) L 03/29/17 07:00 BUN 13 mg/dL (7-18) 03/29/17 07:00 Creatinine 0.9 mg/dL (0.7-1.3) 03/29/17 07:00 Creat Clearance w eGFR > 60 (>60) 03/29/17 07:00 Random Glucose 102 mg/dL (74-106) 03/29/17 07:00 Calcium 8.9 mg/dL (8.5-10.1) 03/29/17 07:00 Total Bilirubin 0.4 mg/dL (0.2-1.0) 03/29/17 07:00 AST 20 U/L (15-37) 03/29/17 07:00 ALT 23 U/L (12-78) D 03/29/17 07:00 Alkaline Phosphatase 62 U/L (45-117) 03/29/17 07:00 Total Protein 6.5 g/dl (6.4-8.2) 03/29/17 07:00 Albumin 3.3 g/dl (3.4-5.0) L 03/29/17 07:00 Urine Color Yellow 03/28/17 18:50 Urine Appearance Clear 03/28/17 18:50 Urine pH 5.0 (5.0-8.0) 03/28/17 18:50 Ur Specific [place] 1.025 (1.005-1.025) 03/28/17 18:50 Urine Protein Negative (NEGATIVE) 03/28/17 18:50 Urine Glucose (UA) Negative (NEGATIVE) 03/28/17 18:50 Urine Ketones Negative (NEGATIVE) 03/28/17 18:50 Urine Blood Negative (NEGATIVE) 03/28/17 18:50 Urine Nitrite Negative (NEGATIVE) 03/28/17 18:50 Urine Bilirubin Negative (NEGATIVE) 03/28/17 18:50 Urine Urobilinogen Negative E.U./dl (0.2-1.0) 03/28/17 18:50 Ur Leukocyte Esterase Negative (NEGATIVE) 03/28/17 18:50 RPR Titer Nonreactive (NONREACTIVE) 03/29/17 07:00 LABS NOTED. Assessment: 03/31/17 12:49 WITHDRAWAL SYMPTOMS. Plan: CONTINUE DETOX.
[2017-03-31] MEDS: THIAMINE HCL 100 MG TABLET (FP) PO SCH (22:07)
[2017-03-31] MEDS: chlordiazePOXIDE HCL 10 MG CAPSULE PO SCH (22:08)
[2017-03-31] MEDS: diphenhydrAMINE HCL 50 MG CAPSULE PO PRN (22:08)
[2017-04-01] MEDS: chlordiazePOXIDE HCL 10 MG CAPSULE PO SCH ×3 (05:32→17:19)
[2017-04-01] MEDS: PRENATAL VITAMINS W/ FOLIC ACID TABLET (FP) PO SCH (10:04)
[2017-04-01] MEDS: NICOTINE 21 MG/24 HOURS TOPICAL PATCH TD SCH (10:04)
[2017-04-01] MEDS: BUDESONIDE/FORMETEROL FUMARATE 80/4.5 mcg INHALER IH SCH ×2 (10:04→22:05)
[2017-04-01] MEDS ORDERED: AMMONIUM LACTATE 12% LOTION 225 GM BOTTLE TP PRN (12:46)
[2017-04-01] MEDS ORDERED: HYDROCORTISONE 1% TOPICAL OINT 30 GM TUBE TP PRN (12:47)
[2017-04-01] MEDS: ALBUTEROL SO4 6.7 GM HFA INHALER IH PRN (13:58)
--- NOTE | 2017-04-01 18:11 | PN ---
[facility] Progress Note (SOAP) Subjective: Interrupted Sleep, Lower Back Ache, Tremors. Objective: PT. A & O X 3, OBSERVED AMBULATING ON UNIT. 04/01/17 18:09 Vital Signs Temperature 96.8 F L 04/01/17 13:07 Pulse Rate 87 04/01/17 13:07 Respiratory Rate 16 04/01/17 13:07 Blood Pressure 149/96 04/01/17 13:07 O2 Sat by Pulse Oximetry (%) Laboratory Tests 03/28/17 03/29/17 03/29/17 18:50 07:00 07:00 WBC 4.7 RBC 4.55 Hgb 13.4 Hct 41.0 MCV 90.0 MCHC 32.7 RDW 14.4 Plt Count 149 MPV 8.9 Sodium 143 Potassium 4.2 Chloride 106 Carbon Dioxide 30 Anion Gap 7 L BUN 13 Creatinine 0.9 Creat Clearance w eGFR > 60 Random Glucose 102 Calcium 8.9 Total Bilirubin 0.4 AST 20 ALT 23 D Alkaline Phosphatase 62 Total Protein 6.5 Albumin 3.3 L Urine Color Yellow Urine Appearance Clear Urine pH 5.0 Ur Specific [place] 1.025 Urine Protein Negative Urine Glucose (UA) Negative Urine Ketones Negative Urine Blood Negative Urine Nitrite Negative Urine Bilirubin Negative Urine Urobilinogen Negative Ur Leukocyte Esterase Negative RPR Titer 03/29/17 07:00 WBC RBC Hgb Hct MCV MCHC RDW Plt Count MPV Sodium Potassium Chloride Carbon Dioxide Anion Gap BUN Creatinine Creat Clearance w eGFR Random Glucose Calcium Total Bilirubin AST ALT Alkaline Phosphatase Total Protein Albumin Urine Color Urine Appearance Urine pH Ur Specific [place] Urine Protein Urine Glucose (UA) Urine Ketones Urine Blood Urine Nitrite Urine Bilirubin Urine Urobilinogen Ur Leukocyte Esterase RPR Titer Nonreactive LABS NOTED. Assessment: 04/01/17 18:11 WITHDRAWAL SYMPTOMS. Plan: CONTINUE DETOX.
[2017-04-01] MEDS: diphenhydrAMINE HCL 50 MG CAPSULE PO PRN (22:05)
[2017-04-01] MEDS: THIAMINE HCL 100 MG TABLET (FP) PO SCH (22:05)
[2017-04-02] MEDS: PRENATAL VITAMINS W/ FOLIC ACID TABLET (FP) PO SCH (10:05)
[2017-04-02] MEDS: BUDESONIDE/FORMETEROL FUMARATE 80/4.5 mcg INHALER IH SCH ×2 (10:05→22:06)
[2017-04-02] MEDS: NICOTINE 21 MG/24 HOURS TOPICAL PATCH TD SCH (10:05)
--- NOTE | 2017-04-02 16:17 | PN ---
[facility] Progress Note (SOAP) Subjective: Tremor, sweating, anxious, interrupted sleep Objective: 04/02/17 16:16 Last Vital Signs Temp Pulse Resp BP Pulse Ox 96.9 F L 99 H 20 134/93 04/02/17 13:39 04/02/17 13:39 04/02/17 13:39 04/02/17 13:39 Laboratory Tests 03/28/17 03/29/17 03/29/17 18:50 07:00 07:00 WBC 4.7 RBC 4.55 Hgb 13.4 Hct 41.0 MCV 90.0 MCHC 32.7 RDW 14.4 Plt Count 149 MPV 8.9 Sodium 143 Potassium 4.2 Chloride 106 Carbon Dioxide 30 Anion Gap 7 L BUN 13 Creatinine 0.9 Creat Clearance w eGFR > 60 Random Glucose 102 Calcium 8.9 Total Bilirubin 0.4 AST 20 ALT 23 D Alkaline Phosphatase 62 Total Protein 6.5 Albumin 3.3 L Urine Color Yellow Urine Appearance Clear Urine pH 5.0 Ur Specific [place] 1.025 Urine Protein Negative Urine Glucose (UA) Negative Urine Ketones Negative Urine Blood Negative Urine Nitrite Negative Urine Bilirubin Negative Urine Urobilinogen Negative Ur Leukocyte Esterase Negative RPR Titer 03/29/17 07:00 WBC RBC Hgb Hct MCV MCHC RDW Plt Count MPV Sodium Potassium Chloride Carbon Dioxide Anion Gap BUN Creatinine Creat Clearance w eGFR Random Glucose Calcium Total Bilirubin AST ALT Alkaline Phosphatase Total Protein Albumin Urine Color Urine Appearance Urine pH Ur Specific [place] Urine Protein Urine Glucose (UA) Urine Ketones Urine Blood Urine Nitrite Urine Bilirubin Urine Urobilinogen Ur Leukocyte Esterase RPR Titer Nonreactive Labs noted Assessment: 04/02/17 16:16 Withdrawal symptoms Plan: Continue detox
[2017-04-02] MEDS: THIAMINE HCL 100 MG TABLET (FP) PO SCH (22:06)
[2017-04-02] MEDS: diphenhydrAMINE HCL 50 MG CAPSULE PO PRN (22:06)
[2017-04-03] MEDS: ALBUTEROL SO4 6.7 GM HFA INHALER IH PRN (05:59)
[2017-04-03] MEDS: NICOTINE 21 MG/24 HOURS TOPICAL PATCH TD SCH (09:52)
[2017-04-03] MEDS: PRENATAL VITAMINS W/ FOLIC ACID TABLET (FP) PO SCH (09:52)
[2017-04-03] MEDS: BUDESONIDE/FORMETEROL FUMARATE 80/4.5 mcg INHALER IH SCH (09:52)
--- NOTE | 2017-04-03 11:56 | DS ---
[facility] Detox Discharge Summary Admission Date: 03/28/17 Discharge Date: 04/03/17 - History Present History: Alcohol Dependence, Cannabis Dependence, Cocaine Dependence Additional Comments: ADVISED PATIENT TO FOLLOW-UP WITH [facility] AFTER DISCHARGE FOR GENERAL MEDICAL ASSESSMENT. Pertinent Past History: COPD (Emphysema), History of Stomach Ulcers, History of Seizures. - Physical Exam Results Vital Signs: Vital Signs Temperature 96.9 F L 04/03/17 09:50 Pulse Rate 89 04/03/17 09:50 Respiratory Rate 20 04/03/17 09:50 Blood Pressure 125/92 04/03/17 09:50 O2 Sat by Pulse Oximetry (%) Pertinent Admission Physical Exam Findings: WITHDRAWAL SYMPTOMS. Laboratory Tests 03/28/17 03/29/17 03/29/17 18:50 07:00 07:00 WBC 4.7 RBC 4.55 Hgb 13.4 Hct 41.0 MCV 90.0 MCHC 32.7 RDW 14.4 Plt Count 149 MPV 8.9 Sodium 143 Potassium 4.2 Chloride 106 Carbon Dioxide 30 Anion Gap 7 L BUN 13 Creatinine 0.9 Creat Clearance w eGFR > 60 Random Glucose 102 Calcium 8.9 Total Bilirubin 0.4 AST 20 ALT 23 D Alkaline Phosphatase 62 Total Protein 6.5 Albumin 3.3 L Urine Color Yellow Urine Appearance Clear Urine pH 5.0 Ur Specific [place] 1.025 Urine Protein Negative Urine Glucose (UA) Negative Urine Ketones Negative Urine Blood Negative Urine Nitrite Negative Urine Bilirubin Negative Urine Urobilinogen Negative Ur Leukocyte Esterase Negative RPR Titer 03/29/17 07:00 WBC RBC Hgb Hct MCV MCHC RDW Plt Count MPV Sodium Potassium Chloride Carbon Dioxide Anion Gap BUN Creatinine Creat Clearance w eGFR Random Glucose Calcium Total Bilirubin AST ALT Alkaline Phosphatase Total Protein Albumin Urine Color Urine Appearance Urine pH Ur Specific [place] Urine Protein Urine Glucose (UA) Urine Ketones Urine Blood Urine Nitrite Urine Bilirubin Urine Urobilinogen Ur Leukocyte Esterase RPR Titer Nonreactive LABS NOTED. - Treatment Hospital Course: Detox Protocol Followed, Detoxed Safely, Responded well, Discharged Condition Good Patient has Accepted a Rehab Referral to: [facility]. - Medication Discharge Medications: Ambulatory Orders Albuterol Sulfate Inhaler - [Ventolin Hfa Inhaler -] 2 inh PO Q4H 02/01/17 Budesonide/Formeterol Fumarate [SYMBICORT 80/4.5mcg -] 1 inh PO BID 03/28/17 - Diagnosis (1) History of stomach ulcers Current Visit: Yes Status: Chronic (2) Alcohol dependence with uncomplicated withdrawal Current Visit: Yes Status: Acute (3) Cannabis dependence, uncomplicated Current Visit: Yes Status: Acute (4) Cocaine dependence, uncomplicated Current Visit: Yes Status: Acute (5) Nicotine dependence Current Visit: Yes Status: Chronic Qualifiers: Nicotine product type: cigarettes Substance use status: uncomplicated Qualified Code(s): F17.210 - Nicotine dependence, cigarettes, uncomplicated (6) Emphysema/COPD Current Visit: Yes Status: Chronic Qualifiers: Emphysema type: unspecified Qualified Code(s): J43.9 - Emphysema, unspecified - AMA Did Patient Leave Against Medical Advice: No
[2017-04-03 13:26] VITALS: BP 145/96; PULSE 88; TEMP 96.4
== END 2017-04-03 15:05 | disposition other institution (70) | DRG 774 ==
LOC: YASAS 16:14 → Y3N 17:26
PROVIDERS: ADMIT Internal Medicine; ATTEND Internal Medicine
PROC: HZ2ZZZZ Detoxification Services for Substance Abuse Treatment (ICD-10-PCS; principal; 2017-03-28)
DX: F10.230 Alcohol dependence with withdrawal, uncomplicated (principal); F14.20 Cocaine dependence, uncomplicated; F12.20 Cannabis dependence, uncomplicated; F17.210 Nicotine dependence, cigarettes, uncomplicated; J43.9 Emphysema, unspecified; Z87.11 Personal history of peptic ulcer disease; Z87.898 Personal history of other specified conditions; Z87.438 Personal history of other diseases of male genital organs
CPT/HCPCS: 36415; 80053; 81003; 85027; 86593; 93005; 93010

== ENCOUNTER 2017-04-03 15:20 | Inpatient (IN) | payer OTHER ==
[2017-04-03] MEDS ORDERED: ACETAMINOPHEN 325 MG TABLET (FP) PO PRN (18:03)
[2017-04-03] MEDS ORDERED: IBUPROFEN 400 MG TABLET (FP) PO PRN (18:03)
[2017-04-03] MEDS ORDERED: MAG HYDROX/AL HYDROX/SIMETH 30 ML UNIT-DOSE CUP PO PRN (18:03)
[2017-04-03] MEDS ORDERED: P-EPHED 60MG/TRIPROLIDI 2.5MG TABLET PO PRN (18:03)
[2017-04-03] MEDS ORDERED: NICOTINE POLACRILEX 2 MG GUM BUC PRN (18:03)
[2017-04-03] MEDS ORDERED: MAGNESIUM CITRATE 300 ML BOTTLE PO PRN (18:03)
[2017-04-03] MEDS ORDERED: MAGNESIUM HYDROX 2400MG/30ML ORAL SUSPENSION 30 ML CUP PO PRN (18:03)
[2017-04-03] MEDS ORDERED: LOPERAMIDE HCL 2 MG CAPSULE PO PRN (18:03)
[2017-04-03] MEDS ORDERED: MENTHOL/PHENOL 1 EACH UD MM PRN (18:03)
[2017-04-03] MEDS ORDERED: ALBUTEROL SO4 2.5/IPRATROPIUM 0.5 INH SOL 3 ML VIAL.NEB. NEB PRN (18:06)
--- NOTE | 2017-04-03 18:07 | HP ---
[facility] Rehab Assess/Revision - Admission History Admitted to Rehab from: [facility] Date of Admission to Rehab: 04/03/17 - Vital signs Vital Signs: Vital Signs Period Temp Pulse Resp BP Sys/Connell Pulse Ox Last 24 Hr 98.3 F 89 18 121/88 - Findings Detox History & Physical reviewed: Yes Concur with findings: Yes Comments/Additional Findings: TRANSFERRED FROM DETOX TO REHAB PER PROTOCOL
[2017-04-03] MEDS: diphenhydrAMINE HCL 50 MG CAPSULE PO PRN (21:49)
[2017-04-03] MEDS: THIAMINE HCL 100 MG TABLET (FP) PO SCH (21:49)
[2017-04-03] MEDS: BUDESONIDE/FORMETEROL FUMARATE 80/4.5 mcg INHALER IH SCH (21:49)
--- NOTE | 2017-04-04 06:32 | HP ---
Psychiatrist Admission - Data Date of interview: 04/04/17 Admission source: 3N Identifying data: This is the first [facility] admission for this 61 years old male, father of 2 children, unemployed financilly supported by and lives with Medical History: Significant for COPD, GERD, treatment for Syphilis and history of surgery for gastric ulcer in Nov 2013. Smokes cigarettes 1ppd Psychiatric History: Denies history of previous psychiatric treatment. However, reports experiencing difficulty to sleep at present Physical/Sexual Abuse/Trauma History: Denies history of emotional, physical or sexual abuse as well as DV relationship Additional Comment: Reports history of multiple misdemeanor arrests. denies being on probation at present Vital Signs: Vital Signs - 24 hr 04/03/17 04/04/17 04/04/17 16:15 00:30 03:30 Temperature 98.3 F Pulse Rate 89 Respiratory 18 18 18 Rate Blood Pressure 121/88 Allergies/Adverse Reactions: Allergies Allergy/AdvReac Type Severity Reaction Status Date / Time No Known Allergies Allergy Verified 03/28/17 16:38 Date of last physical exam: 03/28/17 Concur with the findings of this exam: Yes - Substance Abuse/Tx History Hx Alcohol Use: Yes Hx Substance Use: Yes Substance Use Type: Alcohol (Started drinking alcohol at age 17, consumes 2 pints of liquor &2x 6pk of beer daily. Last drink on 03/28/17), Cocaine (Started smoking crack cocaine at age 22, consumes $150 worth daily. Last smoked on ), Marijuana (started smoking marijuana at age19, comsumes one bag daily. Last smoked on) Hx Substance Use Treatment: Yes (3 previous inpt detox @ [facility] & one inpt rehab @ [facility]) - Admission Criteria Previous failed treatment: Yes Poor recovery environment: Yes Comorbidities: Yes Lacks judgement: Yes Mental Status Exam - Mental Status Exam Alert and Oriented to: Time, Place, Person Cognitive Function: Fair Patient Appearance: Well Groomed Mood: Depressed Affect: Appropriate Patient Behavior: Cooperative Speech Pattern: Clear Voice Loudness: Normal Thought Process: Intact Thought Disorder: Not Present Hallucinations: Denies Suicidal Ideation: Denies Homicidal Ideation: Denies Insight/Judgement: Fair Sleep: Poorly Appetite: Good Muscle strength/Tone: Normal Gait/Station: Normal Psychiatric Findings - Problem List ([place] 1, 2,3) (1) Alcohol dependence with uncomplicated withdrawal Current Visit: No Status: Acute (2) Cocaine dependence, uncomplicated Current Visit: No Status: Acute (3) Cannabis dependence, uncomplicated Current Visit: No Status: Acute (4) Nicotine dependence Current Visit: No Status: Chronic Qualifiers: Nicotine product type: cigarettes Substance use status: uncomplicated Qualified Code(s): F17.210 - Nicotine dependence, cigarettes, uncomplicated (5) Substance-induced sleep disorder Current Visit: Yes Status: Acute (6) Emphysema/COPD Current Visit: No Status: Chronic Qualifiers: Emphysema type: unspecified Qualified Code(s): J43.9 - Emphysema, unspecified (7) History of stomach ulcers Current Visit: No Status: Chronic - Initial Treatment Plan Initial Treatment Plan: 1) Start Trazadone 100 mg po HS for insomnia. Benefits vs Risks of medication discussed with patient and he agreed to ry it. 2) Monitor progress
[2017-04-04] MEDS: PRENATAL VITAMINS W/ FOLIC ACID TABLET (FP) PO SCH (10:29)
[2017-04-04] MEDS: BUDESONIDE/FORMETEROL FUMARATE 80/4.5 mcg INHALER IH SCH ×2 (10:29→21:31)
[2017-04-04] MEDS: NICOTINE 14 MG/24 HOURS TOPICAL PATCH TD PRN (10:30)
[2017-04-04] MEDS: THIAMINE HCL 100 MG TABLET (FP) PO SCH (21:31)
[2017-04-04] MEDS: diphenhydrAMINE HCL 50 MG CAPSULE PO PRN (21:31)
[2017-04-05] MEDS: BUDESONIDE/FORMETEROL FUMARATE 80/4.5 mcg INHALER IH SCH ×2 (10:21→21:47)
[2017-04-05] MEDS: PRENATAL VITAMINS W/ FOLIC ACID TABLET (FP) PO SCH (10:22)
[2017-04-05] MEDS: DOCUSATE SODIUM 100 MG CAPSULE (FP) PO SCH (21:47)
[2017-04-05] MEDS: THIAMINE HCL 100 MG TABLET (FP) PO SCH (21:47)
[2017-04-05] MEDS: diphenhydrAMINE HCL 50 MG CAPSULE PO PRN (21:47)
[2017-04-06] MEDS: DOCUSATE SODIUM 100 MG CAPSULE (FP) PO SCH ×3 (06:47→21:54)
[2017-04-06] MEDS: PRENATAL VITAMINS W/ FOLIC ACID TABLET (FP) PO SCH (10:25)
[2017-04-06] MEDS: NICOTINE 14 MG/24 HOURS TOPICAL PATCH TD PRN (10:26)
[2017-04-06] MEDS: BUDESONIDE/FORMETEROL FUMARATE 80/4.5 mcg INHALER IH SCH ×2 (10:26→21:55)
[2017-04-06] MEDS: CYPROHEPTADINE HCL 4 MG TABLET PO SCH (16:43)
[2017-04-06] MEDS: THIAMINE HCL 100 MG TABLET (FP) PO SCH (21:54)
[2017-04-06] MEDS: diphenhydrAMINE HCL 50 MG CAPSULE PO PRN (21:54)
[2017-04-06] MEDS: CLINDAMYCIN PHOSPHATE 1% TOPICAL GEL 30 GM TUBE TP SCH (21:55)
[2017-04-07] MEDS: DOCUSATE SODIUM 100 MG CAPSULE (FP) PO SCH ×3 (05:46→21:45)
[2017-04-07] MEDS: CYPROHEPTADINE HCL 4 MG TABLET PO SCH ×2 (06:30→16:53)
[2017-04-07] MEDS: BUDESONIDE/FORMETEROL FUMARATE 80/4.5 mcg INHALER IH SCH ×2 (10:37→21:46)
[2017-04-07] MEDS: PRENATAL VITAMINS W/ FOLIC ACID TABLET (FP) PO SCH (10:37)
[2017-04-07] MEDS: CLINDAMYCIN PHOSPHATE 1% TOPICAL GEL 30 GM TUBE TP SCH ×2 (10:38→21:46)
[2017-04-07] MEDS: ALBUTEROL SO4 6.7 GM HFA INHALER IH PRN (14:17)
[2017-04-07] MEDS: diphenhydrAMINE HCL 50 MG CAPSULE PO PRN (21:46)
[2017-04-07] MEDS: THIAMINE HCL 100 MG TABLET (FP) PO SCH (21:46)
[2017-04-08] MEDS: DOCUSATE SODIUM 100 MG CAPSULE (FP) PO SCH ×3 (06:41→21:38)
[2017-04-08] MEDS: CYPROHEPTADINE HCL 4 MG TABLET PO SCH ×2 (06:41→17:04)
[2017-04-08] MEDS: BUDESONIDE/FORMETEROL FUMARATE 80/4.5 mcg INHALER IH SCH ×2 (10:18→21:37)
[2017-04-08] MEDS: PRENATAL VITAMINS W/ FOLIC ACID TABLET (FP) PO SCH (10:18)
[2017-04-08] MEDS: CLINDAMYCIN PHOSPHATE 1% TOPICAL GEL 30 GM TUBE TP SCH ×2 (10:18→21:38)
[2017-04-08] MEDS: THIAMINE HCL 100 MG TABLET (FP) PO SCH (21:38)
[2017-04-08] MEDS: diphenhydrAMINE HCL 50 MG CAPSULE PO PRN (21:38)
[2017-04-09] MEDS: ALBUTEROL SO4 6.7 GM HFA INHALER IH PRN ×2 (01:00→06:50)
[2017-04-09] MEDS: CYPROHEPTADINE HCL 4 MG TABLET PO SCH ×2 (06:49→16:52)
[2017-04-09] MEDS: DOCUSATE SODIUM 100 MG CAPSULE (FP) PO SCH ×3 (06:49→21:51)
[2017-04-09] MEDS: CLINDAMYCIN PHOSPHATE 1% TOPICAL GEL 30 GM TUBE TP SCH ×2 (10:25→21:52)
[2017-04-09] MEDS: BUDESONIDE/FORMETEROL FUMARATE 80/4.5 mcg INHALER IH SCH ×2 (10:26→21:51)
[2017-04-09] MEDS: PRENATAL VITAMINS W/ FOLIC ACID TABLET (FP) PO SCH (10:26)
[2017-04-09] MEDS: THIAMINE HCL 100 MG TABLET (FP) PO SCH (21:51)
[2017-04-09] MEDS: diphenhydrAMINE HCL 50 MG CAPSULE PO PRN (21:52)
[2017-04-10] MEDS: DOCUSATE SODIUM 100 MG CAPSULE (FP) PO SCH ×3 (06:00→22:05)
[2017-04-10] MEDS: CYPROHEPTADINE HCL 4 MG TABLET PO SCH ×2 (06:00→16:45)
[2017-04-10] MEDS: ALBUTEROL SO4 6.7 GM HFA INHALER IH PRN (08:00)
[2017-04-10] MEDS: PRENATAL VITAMINS W/ FOLIC ACID TABLET (FP) PO SCH (10:25)
[2017-04-10] MEDS: BUDESONIDE/FORMETEROL FUMARATE 80/4.5 mcg INHALER IH SCH ×2 (10:25→22:06)
[2017-04-10] MEDS: CLINDAMYCIN PHOSPHATE 1% TOPICAL GEL 30 GM TUBE TP SCH ×2 (10:25→22:07)
[2017-04-10] MEDS: diphenhydrAMINE HCL 50 MG CAPSULE PO PRN (22:05)
[2017-04-10] MEDS: THIAMINE HCL 100 MG TABLET (FP) PO SCH (22:05)
[2017-04-11] MEDS: DOCUSATE SODIUM 100 MG CAPSULE (FP) PO SCH ×3 (05:58→21:50)
[2017-04-11] MEDS: guaiFENesin/D-METHORPHAN HB 10 ML UNIT-DOSE CUPS PO PRN ×2 (05:59→21:52)
[2017-04-11] MEDS: CYPROHEPTADINE HCL 4 MG TABLET PO SCH ×2 (06:32→17:00)
[2017-04-11] MEDS: CLINDAMYCIN PHOSPHATE 1% TOPICAL GEL 30 GM TUBE TP SCH ×2 (10:39→21:51)
[2017-04-11] MEDS: BUDESONIDE/FORMETEROL FUMARATE 80/4.5 mcg INHALER IH SCH ×2 (10:39→21:51)
[2017-04-11] MEDS: PRENATAL VITAMINS W/ FOLIC ACID TABLET (FP) PO SCH (10:40)
--- NOTE | 2017-04-11 12:03 | PN ---
[facility] Progress Note (SOAP) Subjective: c/o cough , thick greyish phlegm , smoker Objective: 04/11/17 12:01 Vital Signs Temperature 98.9 F 04/11/17 07:35 Pulse Rate 87 04/11/17 07:35 Respiratory Rate 18 04/11/17 07:35 Blood Pressure 121/88 04/11/17 07:35 O2 Sat by Pulse Oximetry (%) pt aox3 ambulating + cough lungs mild rhonchi zonia Assessment: 04/11/17 12:02 bronchitis r/o pn Plan: cont. detox increase fluids robitussin prn augmentin 875mg bid
[2017-04-11] MEDS: AMOX TR/POT CLAV 875MG/125MG TABLETS (FP) PO SCH (17:00)
[2017-04-11] MEDS: THIAMINE HCL 100 MG TABLET (FP) PO SCH (21:50)
[2017-04-11] MEDS: diphenhydrAMINE HCL 50 MG CAPSULE PO PRN (21:51)
[2017-04-12] MEDS: CYPROHEPTADINE HCL 4 MG TABLET PO SCH (06:07)
[2017-04-12] MEDS: DOCUSATE SODIUM 100 MG CAPSULE (FP) PO SCH ×2 (06:07→15:35)
[2017-04-12 06:56] VITALS: BP 133/81; PULSE 99; TEMP 98.1
[2017-04-12] MEDS: AMOX TR/POT CLAV 875MG/125MG TABLETS (FP) PO SCH (07:22)
[2017-04-12] MEDS: CLINDAMYCIN PHOSPHATE 1% TOPICAL GEL 30 GM TUBE TP SCH (10:21)
[2017-04-12] MEDS: BUDESONIDE/FORMETEROL FUMARATE 80/4.5 mcg INHALER IH SCH (10:21)
[2017-04-12] MEDS: guaiFENesin/D-METHORPHAN HB 10 ML UNIT-DOSE CUPS PO PRN (10:21)
[2017-04-12] MEDS: PRENATAL VITAMINS W/ FOLIC ACID TABLET (FP) PO SCH (10:21)
--- NOTE | 2017-04-12 13:22 | PN ---
Psychiatric Progress Note Vital Signs: Vital Signs Period Temp Pulse Resp BP Sys/Connell Pulse Ox Last 24 Hr 98.1 F 99 16-16 133/81 Date of Session: 04/12/17 Chief Complaint:: discharge visit HPI: Patient has addressed alcohol, cocaine, cannabis, nicotine dependence comorbid substance induced sleep disorder. ROS: COPD, GERD medically managed. Current Medications: Active Medications Generic Name Dose Route Start Last Admin Trade Name Freq PRN Reason Stop Dose Admin Acetaminophen 650 mg 04/03/17 18:03 Tylenol - PO Q4H PRN FEVER OR PAIN Al Hydroxide/Mg Hydroxide 30 ml 04/03/17 18:03 Mylanta Oral Suspension - PO Q6H PRN DYSPEPSIA Albuterol Sulfate 2 puff 04/03/17 18:06 04/10/17 08:00 Ventolin Hfa Inhaler - IH 2 puff Q4H PRN Administration SHORT OF BREATH/WHEEZING Amoxicillin/Clavulanate Potassium 1 tab 04/11/17 17:30 04/12/17 07:22 Augmentin - 875mg Tablet PO 1 tab BID@0800,1730 ESHA Administration Budesonide/Formoterol Fumarate 2 puff 04/03/17 22:00 04/12/17 10:21 Symbicort 80/4.5mcg - IH 2 puff BID ESHA Administration Clindamycin Phosphate 1 applic 04/06/17 22:00 04/12/17 10:21 Cleocin 1% Gel - TP 1 applic BID ESHA Administration Cyproheptadine HCl 4 mg 04/06/17 16:30 04/12/17 06:07 Periactin - PO 4 mg BIDAC ESHA Administration Diphenhydramine HCl 50 mg 04/03/17 18:03 04/11/17 21:51 Benadryl - PO 50 mg HSMR1 PRN Administration FOR ITCHING Docusate Sodium 100 mg 04/05/17 22:00 04/12/17 06:07 Colace - PO 100 mg TID ESHA Administration Eucalyptus/Menthol/Phenol/Sorbitol 1 each 04/03/17 18:03 Cepastat Lozenge - MM Q4H PRN SORE THROAT Guaifenesin 10 ml 04/03/17 18:03 04/12/17 10:21 Robitussin Dm - PO 10 ml Q6H PRN Administration COUGH Ibuprofen 400 mg 04/03/17 18:03 Motrin - PO Q6H PRN PAIN Loperamide HCl 4 mg 04/03/17 18:03 Imodium - PO Q6H PRN DIARRHEA Magnesium Hydroxide 30 ml 04/03/17 18:03 Milk Of Magnesia - PO DAILY PRN CONSTIPATION Nicotine 14 mg 04/03/17 18:30 04/06/17 10:26 Nicoderm Patch - TD 14 mg DAILY PRN Administration WITHDRAWAL(CONT SUBST) Nicotine Polacrilex 2 mg 04/03/17 18:03 Nicorette Gum - BUC Q2H PRN NICOTINE REPLACEMENT RX Multivit/Folic Acid/Iron 1 tab 04/04/17 10:00 04/12/17 10:21 Vitamins (Sjr) - PO 1 tab DAILY ESHA Administration Pseudoephedrine/Triprolidine 1 combo 04/03/17 18:03 Actifed - PO TID PRN NASAL CONGESTION Thiamine HCl 100 mg 04/03/17 22:00 04/11/17 21:50 Vitamin B1 - PO 100 mg HS ESHA Administration Current Side Effect: No Lab tests ordered: No Lab tests reviewed: Yes Provider note:: Patient completed today a modified treatment program and met his short term goals, will continue to address his issues at [facility], he focused on insights he gained during his treatments and importance to utilze all sourses available to prevent relapses. Pt is stable for discharfe today. Total face to face time:: 15 Mental Status Exam - Mental Status Exam Alert and Oriented to: Time, Place, Person Cognitive Function: Good Patient Appearance: Well Groomed Mood: Hopeful Affect: Appropriate, Mood Congruent Patient Behavior: Appropriate, Cooperative Speech Pattern: Clear, Appropriate Voice Loudness: Normal Thought Process: Intact, Goal Oriented Thought Disorder: Not Present Hallucinations: Denies Suicidal Ideation: Denies Homicidal Ideation: Denies Insight/Judgement: Fair Sleep: Fair Appetite: Fair Muscle strength/Tone: Normal Gait/Station: Normal Psychiatric Treatment Plan - Problem List (3) Nicotine dependence Qualifiers: Nicotine product type: cigarettes Substance use status: uncomplicated Qualified Code(s): F17.210 - Nicotine dependence, cigarettes, uncomplicated
== END 2017-04-12 14:15 | disposition home or self-care (01) | DRG 772 ==
LOC: YASAS 15:20 → Y5N 15:21
PROVIDERS: ADMIT Psychiatry & Neurology Psychiatry; ATTEND Psychiatry & Neurology Psychiatry
PROC: HZ42ZZZ Group Counseling for Substance Abuse Treatment, Cognitive-Behavioral (ICD-10-PCS; principal; 2017-04-03)
DX: F10.20 Alcohol dependence, uncomplicated (principal); F14.20 Cocaine dependence, uncomplicated; F12.20 Cannabis dependence, uncomplicated; F17.210 Nicotine dependence, cigarettes, uncomplicated; F19.282 Other psychoactive substance dependence with psychoactive substance-induced sleep disorder; J45.909 Unspecified asthma, uncomplicated; J43.9 Emphysema, unspecified; K21.9 Gastro-esophageal reflux disease without esophagitis; J40 Bronchitis, not specified as acute or chronic; Z87.438 Personal history of other diseases of male genital organs; Z87.11 Personal history of peptic ulcer disease

== ENCOUNTER 2017-07-26 11:34 | Inpatient (IN) | payer OTHER ==
[2017-07-26 12:46] VITALS: BMI 16.0
--- NOTE | 2017-07-26 14:28 | HP ---
CIWA Score - CIWA Score Nausea/Vomitin Muscle Tremors: 4-Moderate,w/Arms Extend Anxiety: 4-Mod. Anxious/Guarded Agitation: 4-Moderately Restless Paroxysmal Sweats: 3 Orientation: 0-Oriented Tacttile Disturbances: 2-Mild Itch/Numbness/Burn Auditory Disturbances: 0-None Visual Disturbances: 0-None Headache: 2-Mild CIWA-Ar Total Score: 22 Admission ROS BHS - HPI Chief Complaint: alcohol and cocaine withdrawal sx Allergies/Adverse Reactions: Allergies Allergy/AdvReac Type Severity Reaction Status Date / Time No Known Allergies Allergy Verified 07/26/17 12:55 History of Present Illness: 61 yo ma with h/o chronic alcoholism, cocaine and nicotien dependence last used today PMHx COPD/emphysema, taking meds, bleeding PUD s/p surgery, wt loss, insomnia, anxiety and deprssion. h/o seizures in 1979 2/2 alcohol and cocaine use, none since not on any medications, no DTS. Exam Limitations: No Limitations - Ebola screening Have you traveled outside of the country in the last 21 days: No Have you had contact with anyone from an Ebola affected area: No Have you been sick,other than usual withdrawal symptoms: No Do you have a fever: No - Review of Systems Constitutional: Chills, Diaphoresis, Loss of Appetite, Malaise, Night Sweats, Weakness, Unintentional Wgt. Loss EENT: reports: Tearing, Throat Pain (occcasional not bad from smoking) Respiratory: reports: Cough, Shortness of Breath, SOB with Exertion, Wheezing, Productive cough Cardiac: reports: Chest Tightness (when using drugs) GI: reports: Nausea : reports: No Symptoms Reported Musculoskeletal: reports: Back Pain (chronic low back pain), Muscle Pain (spasms ), Muscle Weakness Integumentary: reports: Flushing, Sweating Neuro: reports: Headache, Numbness, Paresthesia, Seizure (1979 from drug use), Tremors, Weakness Endocrine: reports: No Symptoms Reported Hematology: reports: No Symptoms Reported Psychiatric: reports: Judgement Intact, Mood/Affect Appropiate, Orientated x3, Anxious, Depressed, Disorientated Other Systems: Reviewed and Negative Patient History - Patient Medical History Hx Anemia: No Hx Asthma: No Hx Chronic Obstructive Pulmonary Disease (COPD): Yes Hx Cancer: No Hx Cardiac Disorders: No Hx Hypertension: No Hx Hypercholesterolemia: No Hx Pacemaker: No HX Cerebrovascular Accident: No Hx Seizures: Yes (1980s from drug use) Hx Dementia: No Hx Diabetes: No Hx Gastrointestinal Disorders: No Hx Liver Disease: No Hx Genitourinary Disorders: No Hx Sexually Transmitted Disorders: Yes (sphyllis many yrs ago) Hx Renal Disease (ESRD): No Hx Thyroid Disease: No Hx Human Immunodeficiency Virus (HIV): No (NEGATIVE HX LAST 2013) Hx Hepatitis C: No Hx Depression: No Hx Suicide Attempt: No Hx Bipolar Disorder: No Hx Schizophrenia: No - Patient Surgical History Past Surgical History: Yes Hx Neurologic Surgery: No Hx Cataract Extraction: No Hx Cardiac Surgery: No Hx Lung Surgery: No Hx Breast Surgery: No Hx Breast Biopsy: No Hx Abdominal Surgery: Yes (stomach ulcer in 11/2013 INTERFATHE) Hx Appendectomy: No Hx Cholecystectomy: No Hx Genitourinary Surgery: No Hx Section: No Hx Orthopedic Surgery: No Anesthesia Reaction: No - PPD History Previous Implant?: Yes Documented Results: Positive w/o proof Implanted On Prior [facility] Admission?: No Results: seen CXR result - Reproductive History Patient is a Female of Child Bearing Age (11 -55 yrs old): No Patient : No - Smoking Cessation Smoking history: Current every day smoker Have you smoked in the past 12 months: Yes Aproximately how many cigarettes per day: 20 Cigars Per Day: 0 Hx Chewing Tobacco Use: No Initiated information on smoking cessation: Yes 'Breaking Loose' booklet given: 07/26/17 - Substance & Tx. History Hx Alcohol Use: Yes Hx Substance Use: Yes Substance Use Type: Alcohol, Cocaine Hx Substance Use Treatment: Yes ([facility]) - Substances Abused Alcohol Route: Oral Frequency: Daily Amount used: cognac(1 pint)/beer(2 -6pks-16oz cans) Age of first use: 18 Date of Last Use: 07/26/17 Cocaine Route: Smoking Frequency: Daily Amount used: $200 Age of first use: 36 Date of Last Use: 07/26/17 Family Disease History - Family Disease History Family Disease History: Diabetes: Father (,ALCOHOL), Heart Disease: Mother (HTN) Admission Physical Exam BHS - Vital Signs Vital Signs: Vital Signs - 24 hr 07/26/17 12:44 Temperature 97 F L Pulse Rate 92 H Respiratory 20 Rate Blood Pressure 131/90 - Physical General Appearance: Yes: Nourished, Appropriately Dressed, Disheveled, Mild Distress, Cachetic, Thin, Tremorous, Sweating, Anxious, Other (dry skin) HEENTM: Yes: EOMI, Hearing grossly Normal, Normal ENT Inspection, Normocephalic , Normal Voice, LUISANA, Pharynx Normal Respiratory: Yes: Chest Non-Tender, Lungs Clear, Normal Breath Sounds, No Respiratory Distress, No Accessory Muscle Use Neck: Yes: Within Normal Limits, No masses,lesions,Nodules, Supple, Trachea in good position Breast: Yes: Breast Exam Deferred Cardiology: Yes: Within Normal Limits, Regular Rhythm, Regular Rate, S1, S2 Abdominal: Yes: Normal Bowel Sounds, Non Tender, Flat, Soft Genitourinary: Yes: Within Normal Limits Back: Yes: Within Normal Limits, Normal Inspection Musculoskeletal: Yes: full range of Motion, Gait Steady, Pelvis Stable Extremities: Yes: Normal Capillary Refill, Normal Range of Motion, Non-Tender, Tremors Neurological: Yes: sorting supervisor II-XII NML intact, Fully Oriented, Alert, Motor Strength 5/5, Normal Mood/Affect, Depressed Affect Integumentary: Yes: Normal Color, Warm, Diaphoresis, Moist - Addiitonal Findings: withdrawal sx - Diagnostic (1) Alcohol dependence with uncomplicated withdrawal Current Visit: No Status: Acute (2) Cannabis dependence, uncomplicated Current Visit: No Status: Inactive (3) Cocaine dependence, uncomplicated Current Visit: Yes Status: Chronic (4) Substance-induced sleep disorder Current Visit: Yes Status: Acute (5) Emphysema/COPD Current Visit: No Status: Chronic Qualifiers: Emphysema type: unspecified Qualified Code(s): J43.9 - Emphysema, unspecified (6) History of stomach ulcers Current Visit: No Status: Chronic (7) Nicotine dependence Current Visit: Yes Status: Chronic Qualifiers: Nicotine product type: cigarettes Substance use status: uncomplicated Qualified Code(s): F17.210 - Nicotine dependence, cigarettes, uncomplicated (8) Weight loss Current Visit: Yes Status: Chronic Cleared for Admission S - Detox or Rehab [facility] Level of Care: Medically Managed Detox Regimen/Protocol: Librium [facility] Breath Alcohol Content Breath Alcohol Content: 0 Urine Drug Screen - Results Drug Screen Negative: No Urine Drug Screen Results: MORENA-Cocaine
[2017-07-26] MEDS ORDERED: ACETAMINOPHEN 325 MG TABLET (FP) PO PRN (14:31)
[2017-07-26] MEDS ORDERED: chlordiazePOXIDE HCL 25 MG CAPSULE PO PRN (14:31)
[2017-07-26] MEDS ORDERED: guaiFENesin/D-METHORPHAN HB 10 ML UNIT-DOSE CUPS PO PRN (14:31)
[2017-07-26] MEDS ORDERED: MENTHOL/PHENOL 1 EACH UD MM PRN (14:31)
[2017-07-26] MEDS ORDERED: LOPERAMIDE HCL 2 MG CAPSULE PO PRN (14:31)
[2017-07-26] MEDS ORDERED: P-EPHED 60MG/TRIPROLIDI 2.5MG TABLET PO PRN (14:31)
[2017-07-26] MEDS ORDERED: MAG HYDROX/AL HYDROX/SIMETH 30 ML UNIT-DOSE CUP PO PRN (14:31)
[2017-07-26] MEDS ORDERED: NICOTINE POLACRILEX 4 MG GUM BC PRN (14:31)
[2017-07-26] MEDS ORDERED: hydrOXYzine PAMOATE 50 MG CAPSULE (FP) PO PRN (14:31)
[2017-07-26] MEDS ORDERED: MAGNESIUM CITRATE 300 ML BOTTLE PO PRN (14:31)
[2017-07-26] MEDS ORDERED: ZOLPIDEM TARTRATE 10 MG TABLET (PARK CARE ONLY) PO PRN (14:33)
[2017-07-26] MEDS ORDERED: COLLOIDAL OATMEAL 1 BAR EACH TP PRN (14:34)
[2017-07-26] MEDS ORDERED: chlordiazePOXIDE HCL 25 MG CAPSULE PO ONE (15:07)
[2017-07-26] MEDS: NICOTINE 21 MG/24 HOURS TOPICAL PATCH TD SCH (15:36)
[2017-07-26] MEDS: chlordiazePOXIDE HCL 25 MG CAPSULE PO SCH ×3 (17:04→22:02)
[2017-07-26 17:05] LABS: URINE APPEARANCE SLCLOUDY; URINE BILIRUBIN NEGATIVE (NEGATIVE); URINE BLOOD NEGATIVE (NEGATIVE); URINE COLOR YELLOW; URINE GLUCOSE (UA) NEGATIVE (NEGATIVE); URINE KETONE NEGATIVE (NEGATIVE); URINE LEUK ESTERASE NEGATIVE (NEGATIVE); URINE NITRITE NEGATIVE (NEGATIVE); URINE PROTEIN NEGATIVE (NEGATIVE)
[2017-07-26] MEDS: ALBUTEROL SO4 6.7 GM HFA INHALER IH PRN (19:41)
[2017-07-26] MEDS: THIAMINE HCL 100 MG TABLET (FP) PO SCH (22:02)
[2017-07-26] MEDS: BUDESONIDE/FORMETEROL FUMARATE 80/4.5 mcg INHALER IH SCH (22:02)
[2017-07-26] MEDS: AMMONIUM LACTATE 12% LOTION 225 GM BOTTLE TP SCH (22:02)
[2017-07-27] MEDS: chlordiazePOXIDE HCL 25 MG CAPSULE PO SCH ×4 (07:03→22:28)
[2017-07-27 09:49] LABS: HIV 1 & 2 AB NEGATIVE; HIV 1 AGp24 NEGATIVE
[2017-07-27 09:52] LABS: MCH 28.7 pg (25.7-33.7); MCHC 32.5 g/dl (32.0-35.9); MEAN CELL VOLUME 88.1 fl (80-96); MEAN PLT VOLUME 9.7 fl (7.5-11.1); PLATELET COUNT 174 K/MM3 (134-434); RDW 13.5 % (11.9-15.9); WHITE BLOOD COUNT 4.6 K/mm3 (4.0-10.0)
[2017-07-27 10:00] LABS: ALBUMIN 3.6 g/dl (3.4-5.0); ANION GAP 7 (8-16); BILIRUBIN,TOTAL 0.9 mg/dL (0.2-1.0); CO2 29 mmol/L (21-32); CREATININE 1.1 mg/dL (0.7-1.3); GLUCOSE,RANDOM 122 mg/dL (74-106); SGOT/AST 18 U/L (15-37); TOT PROT 7.1 g/dl (6.4-8.2)
[2017-07-27 10:02] LABS: ALK PHOS 63 U/L (45-117); SGPT/ALT 21 U/L (12-78)
[2017-07-27] MEDS: BUDESONIDE/FORMETEROL FUMARATE 80/4.5 mcg INHALER IH SCH ×2 (10:28→22:44)
[2017-07-27] MEDS: NICOTINE 21 MG/24 HOURS TOPICAL PATCH TD SCH (10:29)
[2017-07-27] MEDS: PRENATAL VITAMINS W/ FOLIC ACID TABLET (FP) PO SCH (10:29)
[2017-07-27] MEDS: AMMONIUM LACTATE 12% LOTION 225 GM BOTTLE TP SCH ×2 (10:30→22:44)
[2017-07-27] MEDS ORDERED: ONDANSETRON *ODT* 4 MG TABLET SL PRN (11:40)
--- NOTE | 2017-07-27 11:40 | PN ---
[facility] CIWA - CIWA Score Nausea/Vomitin-No Nausea/No Vomiting Muscle Tremors: 4-Moderate,w/Arms Extend Anxiety: 4-Mod. Anxious/Guarded Agitation: 4-Moderately Restless Paroxysmal Sweats: 1-Minimal Palms Moist Orientation: 0-Oriented Tacttile Disturbances: 3-Moderate Itch/Numb/Burn Auditory Disturbances: 0-None Visual Disturbances: 0-None Headache: 0-None Present CIWA-Ar Total Score: 16 S Progress Note (SOAP) Subjective: ANXIETY,SWEATS,TREMORS,NAUSEA,INTERMITTENT. Objective: 07/27/17 11:38 Vital Signs Temperature 96.4 F L 07/27/17 10:14 Pulse Rate 87 07/27/17 10:14 Respiratory Rate 20 07/27/17 10:14 Blood Pressure 139/92 07/27/17 10:14 O2 Sat by Pulse Oximetry (%) Laboratory Last Values WBC 4.6 K/mm3 (4.0-10.0) 07/27/17 06:00 RBC 4.77 M/mm3 (4.00-5.60) 07/27/17 06:00 Hgb 13.7 GM/dL (11.7-16.9) 07/27/17 06:00 Hct 42.0 % (35.4-49) 07/27/17 06:00 MCV 88.1 fl (80-96) 07/27/17 06:00 MCH 28.7 pg (25.7-33.7) 07/27/17 06:00 MCHC 32.5 g/dl (32.0-35.9) 07/27/17 06:00 RDW 13.5 % (11.9-15.9) 07/27/17 06:00 Plt Count 174 K/MM3 (134-434) 07/27/17 06:00 MPV 9.7 fl (7.5-11.1) 07/27/17 06:00 Sodium 141 mmol/L (136-145) 07/27/17 06:15 Potassium 3.7 mmol/L (3.5-5.1) 07/27/17 06:15 Chloride 105 mmol/L (98-107) 07/27/17 06:15 Carbon Dioxide 29 mmol/L (21-32) 07/27/17 06:15 Anion Gap 7 (8-16) L 07/27/17 06:15 BUN 12 mg/dL (7-18) 07/27/17 06:15 Creatinine 1.1 mg/dL (0.7-1.3) D 07/27/17 06:15 Creat Clearance w eGFR > 60 (>60) 07/27/17 06:15 Random Glucose 122 mg/dL (74-106) H 07/27/17 06:15 Calcium 9.0 mg/dL (8.5-10.1) 07/27/17 06:15 Total Bilirubin 0.9 mg/dL (0.2-1.0) D 07/27/17 06:15 AST 18 U/L (15-37) 07/27/17 06:15 ALT 21 U/L (12-78) 07/27/17 06:15 Alkaline Phosphatase 63 U/L (45-117) 07/27/17 06:15 Total Protein 7.1 g/dl (6.4-8.2) 07/27/17 06:15 Albumin 3.6 g/dl (3.4-5.0) 07/27/17 06:15 Urine Color Yellow 07/26/17 15:00 Urine Appearance Slcloudy 07/26/17 15:00 Urine pH 5.0 (5.0-8.0) 07/26/17 15:00 Ur Specific [place] >= 1.030 (1.005-1.025) H 07/26/17 15:00 Urine Protein Negative (NEGATIVE) 07/26/17 15:00 Urine Glucose (UA) Negative (NEGATIVE) 07/26/17 15:00 Urine Ketones Negative (NEGATIVE) 07/26/17 15:00 Urine Blood Negative (NEGATIVE) 07/26/17 15:00 Urine Nitrite Negative (NEGATIVE) 07/26/17 15:00 Urine Bilirubin Negative (NEGATIVE) 07/26/17 15:00 Urine Urobilinogen 2.0 mg/dL (0.2-1.0) 07/26/17 15:00 HIV 1&2 Antibody Screen Negative 07/26/17 14:50 HIV P24 Antigen Negative 07/26/17 14:50 Assessment: 07/27/17 11:39 WITHDRAWAL SX Plan: CONTINUE DETOX ZOFRAN PRN
--- NOTE | 2017-07-27 13:27 | EKG ---
Test Reason : Blood Pressure : / mmHG Vent. Rate : 080 BPM Atrial Rate : 080 BPM P-R Int : 128 ms QRS Dur : 076 ms QT Int : 398 ms P-R-T Axes : 085 074 070 degrees QTc Int : 459 ms SINUS RHYTHM WITH PREMATURE VENTRICULAR COMPLEXES OR FUSION COMPLEXES RIGHT ATRIAL ENLARGEMENT PULMONARY DISEASE PATTERN ABNORMAL ECG WHEN COMPARED WITH ECG OF 28-MAR-2017 17:18, FUSION COMPLEXES ARE NOW PRESENT PREMATURE VENTRICULAR COMPLEXES ARE NOW PRESENT NONSPECIFIC T WAVE ABNORMALITY NOW EVIDENT IN ANTERIOR LEADS Confirmed by YESSICA WAHL MD ([id number]) on 07/27/2017 1:27:22 PM Referred By: Confirmed By:YESSICA WAHL MD
[2017-07-27] MEDS: THIAMINE HCL 100 MG TABLET (FP) PO SCH (22:28)
[2017-07-27] MEDS: diphenhydrAMINE HCL 50 MG CAPSULE PO PRN (22:28)
[2017-07-28] MEDS: chlordiazePOXIDE HCL 25 MG CAPSULE PO SCH (05:20)
[2017-07-28] MEDS: ALBUTEROL SO4 6.7 GM HFA INHALER IH PRN (05:21)
[2017-07-28] MEDS: PRENATAL VITAMINS W/ FOLIC ACID TABLET (FP) PO SCH (10:52)
[2017-07-28] MEDS: chlordiazePOXIDE 5 MG CAPSULE PO SCH ×3 (10:52→22:24)
[2017-07-28] MEDS: BUDESONIDE/FORMETEROL FUMARATE 80/4.5 mcg INHALER IH SCH ×2 (10:53→22:23)
[2017-07-28] MEDS: AMMONIUM LACTATE 12% LOTION 225 GM BOTTLE TP SCH ×2 (10:53→22:29)
[2017-07-28] MEDS: NICOTINE 21 MG/24 HOURS TOPICAL PATCH TD SCH (10:53)
[2017-07-28] MEDS ORDERED: CYCLOBENZAPRINE HCL 5 MG TABLET PO ONE (11:41)
--- NOTE | 2017-07-28 11:45 | PN ---
[facility] CIWA - CIWA Score Nausea/Vomitin-Mild Nausea/No Vomiting Muscle Tremors: 4-Moderate,w/Arms Extend Anxiety: 4-Mod. Anxious/Guarded Agitation: 3 Paroxysmal Sweats: 3 Orientation: 0-Oriented Tacttile Disturbances: 1-Very Mild Itch/Numbness Auditory Disturbances: 0-None Visual Disturbances: 0-None Headache: 0-None Present CIWA-Ar Total Score: 16 BHS Progress Note (SOAP) Subjective: C/O back pain,muscle aches/spam,tremors,sweating,interrupted sleep,restless. Objective: 07/28/17 11:43 Vital Signs - 8 hr 07/28/17 07/28/17 06:26 11:14 Temperature 97.1 F L 96.5 F L Pulse Rate 88 78 Respiratory 18 20 Rate Blood Pressure 141/94 125/89 Laboratory Last Values WBC 4.6 K/mm3 (4.0-10.0) 07/27/17 06:00 RBC 4.77 M/mm3 (4.00-5.60) 07/27/17 06:00 Hgb 13.7 GM/dL (11.7-16.9) 07/27/17 06:00 Hct 42.0 % (35.4-49) 07/27/17 06:00 MCV 88.1 fl (80-96) 07/27/17 06:00 MCH 28.7 pg (25.7-33.7) 07/27/17 06:00 MCHC 32.5 g/dl (32.0-35.9) 07/27/17 06:00 RDW 13.5 % (11.9-15.9) 07/27/17 06:00 Plt Count 174 K/MM3 (134-434) 07/27/17 06:00 MPV 9.7 fl (7.5-11.1) 07/27/17 06:00 Sodium 141 mmol/L (136-145) 07/27/17 06:15 Potassium 3.7 mmol/L (3.5-5.1) 07/27/17 06:15 Chloride 105 mmol/L (98-107) 07/27/17 06:15 Carbon Dioxide 29 mmol/L (21-32) 07/27/17 06:15 Anion Gap 7 (8-16) L 07/27/17 06:15 BUN 12 mg/dL (7-18) 07/27/17 06:15 Creatinine 1.1 mg/dL (0.7-1.3) D 07/27/17 06:15 Creat Clearance w eGFR > 60 (>60) 07/27/17 06:15 Random Glucose 122 mg/dL (74-106) H 07/27/17 06:15 Calcium 9.0 mg/dL (8.5-10.1) 07/27/17 06:15 Total Bilirubin 0.9 mg/dL (0.2-1.0) D 07/27/17 06:15 AST 18 U/L (15-37) 07/27/17 06:15 ALT 21 U/L (12-78) 07/27/17 06:15 Alkaline Phosphatase 63 U/L (45-117) 07/27/17 06:15 Total Protein 7.1 g/dl (6.4-8.2) 07/27/17 06:15 Albumin 3.6 g/dl (3.4-5.0) 07/27/17 06:15 Urine Color Yellow 07/26/17 15:00 Urine Appearance Slcloudy 07/26/17 15:00 Urine pH 5.0 (5.0-8.0) 07/26/17 15:00 Ur Specific [place] >= 1.030 (1.005-1.025) H 07/26/17 15:00 Urine Protein Negative (NEGATIVE) 07/26/17 15:00 Urine Glucose (UA) Negative (NEGATIVE) 07/26/17 15:00 Urine Ketones Negative (NEGATIVE) 07/26/17 15:00 Urine Blood Negative (NEGATIVE) 07/26/17 15:00 Urine Nitrite Negative (NEGATIVE) 07/26/17 15:00 Urine Bilirubin Negative (NEGATIVE) 07/26/17 15:00 Urine Urobilinogen 2.0 mg/dL (0.2-1.0) 07/26/17 15:00 RPR Titer Nonreactive (NONREACTIVE) 07/27/17 06:15 HIV 1&2 Antibody Screen Negative 07/26/17 14:50 HIV P24 Antigen Negative 07/26/17 14:50 labs noted Assessment: 07/28/17 11:44 Withdrawal sx. Plan: Continue detox
[2017-07-28] MEDS: CYCLOBENZAPRINE HCL 5 MG TABLET PO SCH ×2 (15:06→22:23)
[2017-07-28] MEDS: IBUPROFEN 600 MG TABLET (FP) PO PRN (16:16)
[2017-07-28] MEDS: MAGNESIUM HYDROX 2400MG/30ML ORAL SUSPENSION 30 ML CUP PO PRN (18:53)
[2017-07-28] MEDS: amLODIPine BESYLATE 5 MG TABLET (FP) PO SCH (21:24)
[2017-07-28] MEDS: diphenhydrAMINE HCL 50 MG CAPSULE PO PRN (22:24)
[2017-07-28] MEDS: THIAMINE HCL 100 MG TABLET (FP) PO SCH (22:28)
[2017-07-29] MEDS: CYCLOBENZAPRINE HCL 5 MG TABLET PO SCH ×3 (06:07→22:30)
[2017-07-29] MEDS: chlordiazePOXIDE 5 MG CAPSULE PO SCH (06:07)
[2017-07-29] MEDS: ALBUTEROL SO4 6.7 GM HFA INHALER IH PRN ×2 (06:10→17:25)
--- NOTE | 2017-07-29 10:43 | CONSULT ---
[facility] Psychiatric Consult - Data Date of interview: 07/29/17 Admission source: Self-referred Identifying data: Mr Lyle is a 61 years old single Black male, father of 2 daughters, unemployed with no source of income, domiciled living with his girlfriend seeking detox treatment with alcohol and cocaine Substance Abuse History: Reports uusing alcohol and cocaine. He started drinking alcohol at age 18, consumes one pint of cognac & 2x 6pk(16oz) daily. Last drink on 07/26/17. He started smoking crack/cocaine at age 36, consumes $ 200 worth daily. Last smoked on 07/26/17 Medical History: Significant for COPD, GERD, treatment for Syphilis and history of surgery for gastric ulcer in Nov 2013. Smokes cigarettes 1ppd Psychiatric History: Patient was seen recently on while admitted to for rehab and denies history of previous psychiatric treatment. Now he claims that since his discharge form rehab last March, he has been feeling anxious. He was told earlier by ASSISTANT FINANCIAL ACCOUNTANT that his discharge date is tom. Told job specification writer that he wants to stay till Monday since he is going to [facility] for inpatient rehab on Monday. So he told ASSISTANT FINANCIAL ACCOUNTANT about experiencing psychiatric symptoms hoping that he will be discharged on Monday instead of tomorrow Physical/Sexual Abuse/Trauma History: Denies history of emotional, physical or sexual abuse as well as DV relationship Additional Comment: Reports history of multiple misdemeanor arrests. denies being on probation at present Mental Status Exam - Mental Status Exam Alert and Oriented to: Time, Place, Person Cognitive Function: Fair Patient Appearance: Well Groomed Mood: Anxious Affect: Normal Range Patient Behavior: Cooperative Speech Pattern: Clear Voice Loudness: Normal Thought Process: Intact, Goal Oriented Hallucinations: Denies Suicidal Ideation: Denies Homicidal Ideation: Denies Insight/Judgement: Poor Sleep: Fair Appetite: Good Muscle strength/Tone: Normal Gait/Station: Normal Psychiatric Findings - Problem List ([place] 1, 2,3) (1) Malingering Current Visit: Yes Status: Acute (2) Substance induced mood disorder Current Visit: Yes Status: Acute (3) Alcohol dependence with uncomplicated withdrawal Current Visit: No Status: Acute (4) Cocaine dependence, uncomplicated Current Visit: Yes Status: Chronic (5) Nicotine dependence Current Visit: Yes Status: Chronic Qualifiers: Nicotine product type: cigarettes Substance use status: uncomplicated Qualified Code(s): F17.210 - Nicotine dependence, cigarettes, uncomplicated (6) Emphysema/COPD Current Visit: No Status: Chronic Qualifiers: Emphysema type: unspecified Qualified Code(s): J43.9 - Emphysema, unspecified (7) History of stomach ulcers Current Visit: No Status: Chronic - Initial Treatment Plan Initial Treatment Plan: Patient feighing psychiatric illness for secondary gains. He is scheduled to be discharged tomorrow but wants to leave on Monday instead since he has no place to go till monday when he will be admitted to [facility] for inpatient rehab
[2017-07-29] MEDS: chlordiazePOXIDE HCL 10 MG CAPSULE PO SCH ×3 (10:54→23:22)
[2017-07-29] MEDS: PRENATAL VITAMINS W/ FOLIC ACID TABLET (FP) PO SCH (10:54)
[2017-07-29] MEDS: amLODIPine BESYLATE 5 MG TABLET (FP) PO SCH (10:54)
[2017-07-29] MEDS: BUDESONIDE/FORMETEROL FUMARATE 80/4.5 mcg INHALER IH SCH ×2 (10:55→22:30)
[2017-07-29] MEDS: AMMONIUM LACTATE 12% LOTION 225 GM BOTTLE TP SCH ×2 (10:55→22:31)
[2017-07-29] MEDS: NICOTINE 21 MG/24 HOURS TOPICAL PATCH TD SCH (10:56)
--- NOTE | 2017-07-29 15:04 | PN ---
[facility] Progress Note (SOAP) Subjective: Diarrhea, Anxious, Sweating. Objective: PT. A & O X 2 (DISORIENTED ABOUT DAY /DATE). PT. OBSERVED AMBULATING ON UNIT. NO ACUTE DISTRESS. 07/29/17 15:00 Vital Signs Temperature 98.1 F 07/29/17 10:32 Pulse Rate 93 H 07/29/17 10:32 Respiratory Rate 16 07/29/17 10:32 Blood Pressure 148/99 07/29/17 10:32 O2 Sat by Pulse Oximetry (%) Laboratory Tests 07/26/17 07/26/17 07/27/17 14:50 15:00 06:00 WBC 4.6 RBC 4.77 Hgb 13.7 Hct 42.0 MCV 88.1 MCH 28.7 MCHC 32.5 RDW 13.5 Plt Count 174 MPV 9.7 Sodium Potassium Chloride Carbon Dioxide Anion Gap BUN Creatinine Creat Clearance w eGFR Random Glucose Calcium Total Bilirubin AST ALT Alkaline Phosphatase Total Protein Albumin Urine Color Yellow Urine Appearance Slcloudy Urine pH 5.0 Ur Specific [place] >= 1.030 H Urine Protein Negative Urine Glucose (UA) Negative Urine Ketones Negative Urine Blood Negative Urine Nitrite Negative Urine Bilirubin Negative Urine Urobilinogen 2.0 RPR Titer HIV 1&2 Antibody Screen Negative HIV P24 Antigen Negative 07/27/17 07/27/17 06:15 06:15 WBC RBC Hgb Hct MCV MCH MCHC RDW Plt Count MPV Sodium 141 Potassium 3.7 Chloride 105 Carbon Dioxide 29 Anion Gap 7 L BUN 12 Creatinine 1.1 D Creat Clearance w eGFR > 60 Random Glucose 122 H Calcium 9.0 Total Bilirubin 0.9 D AST 18 ALT 21 Alkaline Phosphatase 63 Total Protein 7.1 Albumin 3.6 Urine Color Urine Appearance Urine pH Ur Specific [place] Urine Protein Urine Glucose (UA) Urine Ketones Urine Blood Urine Nitrite Urine Bilirubin Urine Urobilinogen RPR Titer Nonreactive HIV 1&2 Antibody Screen HIV P24 Antigen LABS NOTED. Assessment: 07/29/17 15:02 WITHDRAWAL SYMPTOMS. Plan: CONTINUE DETOX. CONTINUE TO MONITOR BP.
[2017-07-29] MEDS: THIAMINE HCL 100 MG TABLET (FP) PO SCH (22:30)
[2017-07-29] MEDS: diphenhydrAMINE HCL 50 MG CAPSULE PO PRN (22:31)
[2017-07-30] MEDS: chlordiazePOXIDE HCL 10 MG CAPSULE PO SCH (05:51)
[2017-07-30] MEDS: CYCLOBENZAPRINE HCL 5 MG TABLET PO SCH ×3 (05:51→22:18)
[2017-07-30] MEDS: PRENATAL VITAMINS W/ FOLIC ACID TABLET (FP) PO SCH (10:34)
[2017-07-30] MEDS: amLODIPine BESYLATE 5 MG TABLET (FP) PO SCH (10:34)
[2017-07-30] MEDS: BUDESONIDE/FORMETEROL FUMARATE 80/4.5 mcg INHALER IH SCH ×2 (10:34→22:18)
[2017-07-30] MEDS: NICOTINE 21 MG/24 HOURS TOPICAL PATCH TD SCH (10:35)
[2017-07-30] MEDS: AMMONIUM LACTATE 12% LOTION 225 GM BOTTLE TP SCH ×2 (10:35→22:18)
--- NOTE | 2017-07-30 17:47 | PN ---
[facility] Progress Note (SOAP) Subjective: Diarrhea, tremor, teary eyes, chills Objective: 07/30/17 17:46 Last Vital Signs Temp Pulse Resp BP Pulse Ox 97.6 F 97 H 16 135/95 07/30/17 13:44 07/30/17 13:44 07/30/17 13:44 07/30/17 13:44 Laboratory Tests 07/26/17 07/26/17 07/27/17 14:50 15:00 06:00 WBC 4.6 RBC 4.77 Hgb 13.7 Hct 42.0 MCV 88.1 MCH 28.7 MCHC 32.5 RDW 13.5 Plt Count 174 MPV 9.7 Sodium Potassium Chloride Carbon Dioxide Anion Gap BUN Creatinine Creat Clearance w eGFR Random Glucose Calcium Total Bilirubin AST ALT Alkaline Phosphatase Total Protein Albumin Urine Color Yellow Urine Appearance Slcloudy Urine pH 5.0 Ur Specific [place] >= 1.030 H Urine Protein Negative Urine Glucose (UA) Negative Urine Ketones Negative Urine Blood Negative Urine Nitrite Negative Urine Bilirubin Negative Urine Urobilinogen 2.0 RPR Titer HIV 1&2 Antibody Screen Negative HIV P24 Antigen Negative 07/27/17 07/27/17 06:15 06:15 WBC RBC Hgb Hct MCV MCH MCHC RDW Plt Count MPV Sodium 141 Potassium 3.7 Chloride 105 Carbon Dioxide 29 Anion Gap 7 L BUN 12 Creatinine 1.1 D Creat Clearance w eGFR > 60 Random Glucose 122 H Calcium 9.0 Total Bilirubin 0.9 D AST 18 ALT 21 Alkaline Phosphatase 63 Total Protein 7.1 Albumin 3.6 Urine Color Urine Appearance Urine pH Ur Specific [place] Urine Protein Urine Glucose (UA) Urine Ketones Urine Blood Urine Nitrite Urine Bilirubin Urine Urobilinogen RPR Titer Nonreactive HIV 1&2 Antibody Screen HIV P24 Antigen Labs noted Assessment: 07/30/17 17:47 Withdrawal symptoms Plan: Continue detox
[2017-07-30] MEDS: IBUPROFEN 600 MG TABLET (FP) PO PRN (19:05)
[2017-07-30] MEDS: diphenhydrAMINE HCL 50 MG CAPSULE PO PRN (22:18)
[2017-07-30] MEDS: THIAMINE HCL 100 MG TABLET (FP) PO SCH (22:18)
[2017-07-30] MEDS: MAGNESIUM HYDROX 2400MG/30ML ORAL SUSPENSION 30 ML CUP PO PRN (22:19)
[2017-07-31] MEDS: CYCLOBENZAPRINE HCL 5 MG TABLET PO SCH (05:21)
[2017-07-31] MEDS: ALBUTEROL SO4 6.7 GM HFA INHALER IH PRN (05:22)
[2017-07-31 06:01] VITALS: BP 121/85; PULSE 93; TEMP 96.6
[2017-07-31] MEDS: amLODIPine BESYLATE 5 MG TABLET (FP) PO SCH (10:29)
[2017-07-31] MEDS: AMMONIUM LACTATE 12% LOTION 225 GM BOTTLE TP SCH (10:29)
[2017-07-31] MEDS: BUDESONIDE/FORMETEROL FUMARATE 80/4.5 mcg INHALER IH SCH (10:29)
[2017-07-31] MEDS: PRENATAL VITAMINS W/ FOLIC ACID TABLET (FP) PO SCH (10:29)
[2017-07-31] MEDS: NICOTINE 21 MG/24 HOURS TOPICAL PATCH TD SCH (10:34)
--- NOTE | 2017-07-31 13:39 | DS ---
[facility] Detox Discharge Summary Admission Date: 07/26/17 Discharge Date: 07/31/17 - History Present History: Alcohol Dependence, Cannabis Dependence, Cocaine Dependence Additional Comments: PATIENT GOING TO [facility] ([place], ..) FOR AFTERCARE. PATIENT WAS DISCHARGED FROM DETOX UNIT IN STABLE MEDICAL CONDITION. Pertinent Past History: COPD (Emphysema), Nicotine Dependence, History of Stomach ulcers. - Physical Exam Results Vital Signs: Vital Signs Temperature 96.6 F L 07/31/17 06:01 Pulse Rate 93 H 07/31/17 06:01 Respiratory Rate 18 07/31/17 06:05 Blood Pressure 121/85 07/31/17 06:01 O2 Sat by Pulse Oximetry (%) Pertinent Admission Physical Exam Findings: WITHDRAWAL SYMPTOMS. Laboratory Tests 07/26/17 07/26/17 07/27/17 14:50 15:00 06:00 WBC 4.6 RBC 4.77 Hgb 13.7 Hct 42.0 MCV 88.1 MCH 28.7 MCHC 32.5 RDW 13.5 Plt Count 174 MPV 9.7 Sodium Potassium Chloride Carbon Dioxide Anion Gap BUN Creatinine Creat Clearance w eGFR Random Glucose Calcium Total Bilirubin AST ALT Alkaline Phosphatase Total Protein Albumin Urine Color Yellow Urine Appearance Slcloudy Urine pH 5.0 Ur Specific [place] >= 1.030 H Urine Protein Negative Urine Glucose (UA) Negative Urine Ketones Negative Urine Blood Negative Urine Nitrite Negative Urine Bilirubin Negative Urine Urobilinogen 2.0 RPR Titer HIV 1&2 Antibody Screen Negative HIV P24 Antigen Negative 07/27/17 07/27/17 06:15 06:15 WBC RBC Hgb Hct MCV MCH MCHC RDW Plt Count MPV Sodium 141 Potassium 3.7 Chloride 105 Carbon Dioxide 29 Anion Gap 7 L BUN 12 Creatinine 1.1 D Creat Clearance w eGFR > 60 Random Glucose 122 H Calcium 9.0 Total Bilirubin 0.9 D AST 18 ALT 21 Alkaline Phosphatase 63 Total Protein 7.1 Albumin 3.6 Urine Color Urine Appearance Urine pH Ur Specific [place] Urine Protein Urine Glucose (UA) Urine Ketones Urine Blood Urine Nitrite Urine Bilirubin Urine Urobilinogen RPR Titer Nonreactive HIV 1&2 Antibody Screen HIV P24 Antigen LABS NOTED. - Treatment Hospital Course: Detox Protocol Followed, Detoxed Safely, Responded well, Discharged Condition Good, Rehab Referral Accepted Patient has Accepted a Rehab Referral to: [facility] ([place], [place] - Medication Discharge Medications: Ambulatory Orders Albuterol Sulfate Inhaler - [Ventolin HFA Inhaler -] 2 puff IH Q4H PRN #1 inhaler 07/31/17 Budesonide/Formeterol Fumarate [SYMBICORT 80/4.5mcg -] 1 inh PO BID #1 inh 07/31 - Diagnosis (1) Alcohol dependence with uncomplicated withdrawal Status: Acute (2) Substance induced mood disorder Status: Acute (3) Substance-induced sleep disorder Status: Acute (4) Cocaine dependence, uncomplicated Status: Chronic (5) Emphysema/COPD Status: Chronic Qualifiers: Emphysema type: unspecified Qualified Code(s): J43.9 - Emphysema, unspecified (6) History of stomach ulcers Status: Chronic (7) Nicotine dependence Status: Chronic Qualifiers: Nicotine product type: cigarettes Substance use status: uncomplicated Qualified Code(s): F17.210 - Nicotine dependence, cigarettes, uncomplicated (8) Weight loss Status: Chronic - AMA Did Patient Leave Against Medical Advice: No
== END 2017-07-31 11:38 | disposition home or self-care (01) | DRG 774 ==
LOC: YASAS 11:34 → Y3N 14:33
PROVIDERS: ADMIT Internal Medicine; ATTEND Internal Medicine
PROC: HZ2ZZZZ Detoxification Services for Substance Abuse Treatment (ICD-10-PCS; principal; 2017-07-26)
DX: F10.230 Alcohol dependence with withdrawal, uncomplicated (principal); F14.20 Cocaine dependence, uncomplicated; F17.210 Nicotine dependence, cigarettes, uncomplicated; F19.24 Other psychoactive substance dependence with psychoactive substance-induced mood disorder; F19.280 Other psychoactive substance dependence with psychoactive substance-induced anxiety disorder; G40.509 Epileptic seizures related to external causes, not intractable, without status epilepticus; J43.9 Emphysema, unspecified; Z87.19 Personal history of other diseases of the digestive system; Z87.438 Personal history of other diseases of male genital organs; Z76.5 Malingerer [conscious simulation]
CPT/HCPCS: 36415; 80053; 81003; 85027; 86593; 87389; 93005; 93010